=== PATIENT | female | born 1995 | race Caucasian/White ===

== ENCOUNTER 2019-05-20 23:55 | Emergency (ER) | payer SELFPAY ==
--- NOTE | 2019-05-21 00:48 | EDM.PDOC ---
ED HPI GENERAL MEDICAL PROBLEM - General Chief Complaint: Respiratory Problem Stated Complaint: SKIN AND NOSE BURING THROAT DRY VOMITING CHILLS Time Seen by Provider: 05/21/19 00:07 Source of Information: Reports: Patient History Limitations: Reports: No Limitations - History of Present Illness INITIAL COMMENTS - FREE TEXT/NARRATIVE: The patient presents for body aces, low back pain, fever and a cough. This has been going on for about a week. Today she developed the fever and low back pain. She has no chest pain. She does not feel short of breath. She has no dysuria or abdominal pain. She did not get the flu shot this year. She also has a sore throat. Onset: Gradual Duration: Week(s): (1) Location: Reports: Generalized Quality: Reports: Ache Severity: Moderate Improves with: Reports: None Worsens with: Reports: None Associated Symptoms: Reports: Cough, Fever/Chills. Denies: Chest Pain, Headaches, Nausea/Vomiting, Shortness of Breath Treatments SYSTEMS SECURITY CONSULTANT: Reports: Acetaminophen, Aspirin, Heat Therapy, NSAIDS Other Treatments SYSTEMS SECURITY CONSULTANT: warm bath Back Pain Score (Numeric/FACES): 7 - Related Data Allergies Allergy/AdvReac Type Severity Reaction Status Date / Time No Known Allergies Allergy Verified 05/21/19 00:15 Home Meds: Home Meds . [No Known Home Meds] 05/21/19 [History] Past Medical History - Past Health History Medical/Surgical History: Denies Medical/Surgical History Social & Family History - Tobacco Use Smoking Status *Q: Never Smoker Second Hand Smoke Exposure: No - Caffeine Use Caffeine Use: Reports: Coffee - Recreational Drug Use Recreational Drug Use: No ED ROS GENERAL - Review of Systems Review Of Systems: See Below Constitutional: Reports: Fever, Chills HEENT: Reports: No Symptoms Respiratory: Reports: Cough. Denies: Shortness of Breath Cardiovascular: Reports: No Symptoms Endocrine: Reports: No Symptoms GI/Abdominal: Reports: No Symptoms : Reports: No Symptoms Musculoskeletal: Reports: No Symptoms ED EXAM, GENERAL - Physical Exam Exam: See Below Exam Limited By: No Limitations General Appearance: Alert, No Apparent Distress Ears: Normal External Exam, Normal Canal, Normal TMs Nose: Normal Inspection Throat/Mouth: Normal Inspection Head: Atraumatic, Normocephalic Neck: Normal Inspection, Supple, Non-Tender Respiratory/Chest: No Respiratory Distress, Lungs Clear, Normal Breath Sounds Cardiovascular: Regular Rate, Rhythm, No Edema, No Murmur GI/Abdominal: Soft, Non-Tender, No Organomegaly, No Mass Back Exam: Normal Inspection Extremities: Normal Inspection Neurological: Alert, Oriented, No Motor/Sensory Deficits Course - Vital Signs Last Recorded V/S: Last Vital Signs Temp 99.6 F 05/21/19 00:08 Pulse 103 H 05/21/19 00:08 Resp 18 05/21/19 00:08 BP 142/89 H 05/21/19 00:08 Pulse Ox 98 05/21/19 00:08 - Orders/Labs/Meds Orders: Active Orders 24 hr Category Date Time Status CXR [Chest 2V] [CR] Stat Exams 05/21/19 00:22 Taken Isolation [COMM] Routine Oth 05/21/19 00:22 Ordered - Re-Assessments/Exams Free Text/Narrative Re-Assessment/Exam: 05/21/19 00:48 I have ordered a CXR and influenza. 05/21/19 01:18 Her influenza is negative. Her CXR shows no pneumonia. This appears a viral URI. I will discharge her home. Departure - Departure Time of Disposition: 01:25 Disposition: Home, Self-Care 01 Condition: Good Clinical Impression: Viral URI - Discharge Information *PRESCRIPTION DRUG MONITORING PROGRAM REVIEWED*: Not Applicable *COPY OF PRESCRIPTION DRUG MONITORING REPORT IN PATIENT LINA: Not Applicable Referrals: PCP,Not In Area [Primary Care Provider] - Teresa Sims REWORKER [Nurse Practitioner] - 1 Week Forms: ED Department Discharge Additional Instructions: Drink plenty of fluids. Take tylenol or motirn for fever or pain. You can try over the counter cold preparations. Please return if you are worse. Sepsis Event Note - Evaluation Sepsis Screening Result: No Definite Risk - Focused Exam Vital Signs: Vital Signs Temp Pulse Resp BP Pulse Ox 05/21/19 00:08 99.6 F 103 H 18 142/89 H 98 Date Exam was Performed: 05/21/19 Time Exam was Performed: 01:18 - My Orders Last 24 Hours: My Active Orders 05/21/19 00:22 CXR [Chest 2V] [CR] Stat Isolation [COMM] Routine - Assessment/Plan Last 24 Hours: My Active Orders 05/21/19 00:22 CXR [Chest 2V] [CR] Stat Isolation [COMM] Routine
--- NOTE | 2019-05-21 07:36 | CR ---
Chest: Two views of the chest were obtained. Comparison: No prior chest x-ray. Heart size and mediastinum are normal. Lungs are clear with no acute parenchymal change. Bony structures appear unremarkable. Impression: 1. Nothing acute is seen on two-view chest x-ray. Diagnostic code #1 This report was dictated in MDT
== END 2019-05-21 01:36 | disposition home or self-care (01) ==
LOC: JD.ED 23:55
DX: J06.9 Acute upper respiratory infection, unspecified (principal)
CPT/HCPCS: 71046; 71046-26; 87804; 99282; 99283-25

== ENCOUNTER 2019-06-06 12:40 | Emergency (ER) | payer OTHER ==
--- NOTE | 2019-06-06 13:41 | EDM.PDOC ---
ED HPI GENERAL MEDICAL PROBLEM - General Chief Complaint: Respiratory Problem Stated Complaint: COVID-19 TESTNG (SOB/FEVER/CHILLS) Time Seen by Provider: 06/06/19 13:03 Source of Information: Reports: Patient, RN Notes Reviewed History Limitations: Reports: No Limitations - History of Present Illness INITIAL COMMENTS - FREE TEXT/NARRATIVE: Patient is a 23-year-old female who presents to the ED for ongoing upper respiratory symptoms. Patient notes that she developed an illness 3 weeks ago, and she is still having a fever, severe body aches/fever/chills, and extreme fatigue, she states that when she gets home all she does not sleep all day, and headaches. Patient states that she moved here recently from [place] in March. She has been taking ibuprofen and BC powder for fever/pain relief. The patient notes that she did have Asthma as a younger person, but she grew out of it. The patient works at [employer] and has been around multiple sick people, and cannot recall if any one has been coughing or sneezing. The patient denies any chance of . Headache Pain Score (Numeric/FACES): 8 - Related Data Allergies Allergy/AdvReac Type Severity Reaction Status Date / Time No Known Allergies Allergy Verified 05/21/19 00:15 Home Meds: Home Meds . [No Known Home Meds] 05/21/19 [History] Past Medical History - Past Health History Medical/Surgical History: Denies Medical/Surgical History Social & Family History - Family History Family Medical History: Noncontributory - Tobacco Use Smoking Status *Q: Never Smoker Second Hand Smoke Exposure: No - Caffeine Use Caffeine Use: Reports: Coffee ED ROS GENERAL - Review of Systems Review Of Systems: Comprehensive ROS is negative, except as noted in HPI. ED EXAM, GENERAL - Physical Exam Exam: See Below Exam Limited By: No Limitations General Appearance: Alert, WD/WN, No Apparent Distress Ears: Normal External Exam Nose: Normal Inspection Throat/Mouth: Normal Inspection Head: Atraumatic Neck: Normal Inspection Respiratory/Chest: No Respiratory Distress, Lungs Clear, Normal Breath Sounds, No Accessory Muscle Use, Chest Non-Tender Cardiovascular: Normal Peripheral Pulses, Regular Rate, Rhythm, No Murmur GI/Abdominal: Normal Bowel Sounds, Soft, Non-Tender, No Distention, No Mass Extremities: Normal Inspection, Normal Capillary Refill Neurological: Alert, Oriented, Normal Cognition, No Motor/Sensory Deficits Psychiatric: Normal Affect, Normal Mood Skin Exam: Warm, Dry, Intact, Normal Color, No Rash Course - Vital Signs Last Recorded V/S: Last Vital Signs Temp 99.1 F 06/06/19 12:58 Pulse 99 06/06/19 12:58 Resp 16 06/06/19 12:58 BP 132/79 06/06/19 12:58 Pulse Ox 98 06/06/19 12:58 - Orders/Labs/Meds Orders: Active Orders 24 hr Category Date Time Status CORONAVIRUS COVID-19 PCR PHL [MREF] Stat Lab 06/06/19 14:40 Received - Re-Assessments/Exams Free Text/Narrative Re-Assessment/Exam: 06/06/19 13:55 Patient presents to the ED for ongoing respiratory symptoms. We will do a chest x-ray today, and do a coronavirus test. Patient seems to be okay with this plan at this time. 06/06/19 14:26 The patient's chest x-ray has come back and is within normal limits. Patient will be discharged home. Departure - Departure Time of Disposition: 13:56 Disposition: Home, Self-Care 01 Condition: Good Clinical Impression: Suspected 2019 novel coronavirus infection - Discharge Information *PRESCRIPTION DRUG MONITORING PROGRAM REVIEWED*: No *COPY OF PRESCRIPTION DRUG MONITORING REPORT IN PATIENT LINA: No Referrals: PCP,None [Primary Care Provider] - Forms: ED Department Discharge, ED Return to Work/School Form Additional Instructions: You were seen in the ER today for ongoing and/or worsening respiratory symptoms. Your chest x-ray showed no signs of pneumonia at this time. Your oxygen levels were great at 99% on room air. At this time we did test you for coronavirus. Regarding testing for COVID-19, testing supplies are very limited, and the tests must be rationed in a way that only the patients that are HIGHLY suspected to have the virus are the ones being tested at this time. You have been given a handout from the [place] Dept[facility] of Health regarding this. We ask that you self-quarantine for at least 7 days from the beginning of symptoms. You have been given a work note to reflect this. Swabs are sent from this facility on a daily basis, at 2:30 PM, you should expect up to 3-5 business days for positive or negative results. However you may receive results earlier than this. We are doing our best to call as soon as we get results from the [place] dept[facility] of Health. It is recommended at this time that you go home and self quarantine and try to limit exposure to other as much as possible. Please try to increase your oral fluid intake, and eat multiple small meals throughout the day, to keep yourself healthy. You may take 500 mg Tylenol every hours 6 hours for pain/fever relief. Do not exceed 4000 mg Tylenol in a 24-hour time span. However, running a fever is your body's natural response to illness, it allows the body to develop antibodies to disease, we are recommending trying to limit the use of Tylenol as much as possible to allow your body's natural immune response. Sepsis Event Note - Evaluation Sepsis Screening Result: No Definite Risk - Focused Exam Vital Signs: Vital Signs Temp Pulse Resp BP Pulse Ox 06/06/19 12:58 99.1 F 99 16 132/79 98 Date Exam was Performed: 06/06/19 Time Exam was Performed: 17:05 - My Orders Last 24 Hours: My Active Orders 06/06/19 14:40 CORONAVIRUS COVID-19 PCR PHL [MREF] Stat - Assessment/Plan Last 24 Hours: My Active Orders 06/06/19 14:40 CORONAVIRUS COVID-19 PCR PHL [MREF] Stat
--- NOTE | 2019-06-06 14:24 | CR ---
Chest: PA and lateral views of the chest were obtained. Comparison: Prior chest x-ray of 05/21/19. Heart size and mediastinum are normal. Lungs show no acute parenchymal change. Bony structures are unremarkable. Impression: 1. Nothing acute is suspected on 2 view chest x-ray. Diagnostic code #1 This report was dictated in MDT
== END 2019-06-06 15:00 | disposition home or self-care (01) ==
LOC: JD.ED 12:40
DX: Z20.828 Contact with and (suspected) exposure to other viral communicable diseases (principal); R50.9 Fever, unspecified
CPT/HCPCS: 71046; 71046-26; 99282; 99283-25; U0002

== ENCOUNTER 2019-10-03 22:39 | Emergency (ER) | payer MEDICARE, OTHER ==
--- NOTE | 2019-10-03 23:30 | EDM.PDOC ---
ED HPI GENERAL MEDICAL PROBLEM - General Chief Complaint: Respiratory Problem Stated Complaint: SOB Time Seen by Provider: 10/03/19 23:30 - History of Present Illness INITIAL COMMENTS - FREE TEXT/NARRATIVE: 24-year-old female presents the emergency room with shortness of breath. The patient had a history of asthma when she was much younger but she outgrew it. She recently moved to this area. She notices that warm environments and strenuous activity really make her short of breath and she becomes very wheezy. She starts to cough during these times as well. She notices that began in the walk-in freezer tends to help her breathing. Her cough is generally nonproductive she is not had any fevers or chills. Patient denies any other complaints at this time she is not had any chest pain associated with this. She does not believe she is . She has a history of irregular periods and is trying to get her periods cycled and has been on Provera for this by history. Upper Chest Pain Score (Numeric/FACES): 2 - Related Data Allergies Allergy/AdvReac Type Severity Reaction Status Date / Time No Known Allergies Allergy Verified 10/03/19 23:16 Home Meds: Home Meds Albuterol Sulfate [Albuterol Sulfate Hfa] 8.5 gm IH ASDIRECTED #1 [email or web address] 10/04/19 [Rx] Past Medical History - Past Health History Medical/Surgical History: Denies Medical/Surgical History Social & Family History - Family History Family Medical History: Noncontributory - Caffeine Use Caffeine Use: Reports: Coffee ED ROS GENERAL - Review of Systems Review Of Systems: See Below Constitutional: Reports: No Symptoms HEENT: Reports: No Symptoms Respiratory: Reports: Shortness of Breath, Wheezing, Cough. Denies: Pleuritic Chest Pain, Sputum, Hemoptysis Cardiovascular: Reports: No Symptoms GI/Abdominal: Reports: No Symptoms : Reports: No Symptoms Skin: Reports: No Symptoms Neurological: Reports: No Symptoms ED EXAM, GENERAL - Physical Exam Exam: See Below Exam Limited By: No Limitations General Appearance: Alert, No Apparent Distress Ears: Normal External Exam, Normal Canal, Hearing Grossly Normal, Normal TMs Nose: Normal Inspection, Normal Mucosa, No Blood Throat/Mouth: Normal Inspection, Normal Lips, Normal Teeth, Normal Gums, Normal Oropharynx, Normal Voice, No Airway Compromise Head: Atraumatic, Normocephalic Neck: Normal Inspection, Supple, Non-Tender, Full Range of Motion. No: Lymphadenopathy (L), Lymphadenopathy (R) Respiratory/Chest: No Respiratory Distress, Normal Breath Sounds, Other (No end expiratory wheezes noted few coarse breath sounds noted otherwise moving air fairly well no respiratory distress). No: Respiratory Distress Cardiovascular: Regular Rate, Rhythm, No Edema, No Murmur GI/Abdominal: Normal Bowel Sounds, Soft, Non-Tender Course - Vital Signs Last Recorded V/S: Last Vital Signs Temp 37.0 C 10/04/19 01:04 Pulse 96 10/04/19 01:04 Resp 18 10/04/19 01:04 BP 122/63 10/04/19 01:04 Pulse Ox 100 10/04/19 01:04 - Orders/Labs/Meds Orders: Active Orders 24 hr Category Date Time Status RT Post Treatment Assessment [RC] Click to Edit Care 10/03/19 23:57 Active RT Pre-Treatment Assessment [RC] Click to Edit Care 10/03/19 23:57 Active Chest 2V [CR] Stat Exams 10/03/19 23:56 Taken Meds: Medications Discontinued Medications Generic Name Dose Route Start Last Admin Trade Name Marvel PRN Reason Stop Dose Admin Albuterol 0 gm 10/03/19 23:56 10/04/19 00:25 Proventil Hfa INH 10/03/19 23:57 2 puff ONETIME ONE Administration - Re-Assessments/Exams Free Text/Narrative Re-Assessment/Exam: 10/04/19 00:11 I will check a chest x-ray and start an albuterol inhaler see if this helps her out. 10/04/19 01:41 Chest x-ray is negative for acute cardiopulmonary changes there might be some mild hyperinflation noted. The patient was started on albuterol MDI and she is now symptom-free this helped out completely. She is ready to go home and would like to go home. I will give her a prescription for an albuterol MDI but more importantly she is instructed to establish with a regular provider and discuss how things are going and if she should be restarted on her Advair. Departure - Departure Time of Disposition: 01:43 Disposition: Home, Self-Care 01 Clinical Impression: Asthma - Discharge Information Referrals: PCP,None [Primary Care Provider] - Forms: ED Department Discharge Additional Instructions: Return to the emergency room with any questions problems or worsening symptoms. Follow-up with a local healthcare provider and be seen this next week. The phone number to the hospital clinic is [phone]. Use the albuterol 2 puffs every 4 hours as needed. However if this is needed on a regular basis you need to be back on your Advair. I did give you a refill for the albuterol at [facility]. Sepsis Event Note (ED) - Evaluation Sepsis Screening Result: No Definite Risk - Focused Exam Vital Signs: Vital Signs Temp Pulse Resp BP Pulse Ox 10/04/19 01:04 37.0 C 96 18 122/63 100 10/03/19 23:10 36.2 C 18 98 - My Orders Last 24 Hours: My Active Orders 10/03/19 23:56 Chest 2V [CR] Stat 10/03/19 23:57 RT Post Treatment Assessment [RC] Click to Edit RT Pre-Treatment Assessment [RC] Click to Edit - Assessment/Plan Last 24 Hours: My Active Orders 10/03/19 23:56 Chest 2V [CR] Stat 10/03/19 23:57 RT Post Treatment Assessment [RC] Click to Edit RT Pre-Treatment Assessment [RC] Click to Edit
[2019-10-03] MEDS ORDERED: Albuterol 6.7 GM Inhaler INH ONE (23:56)
--- NOTE | 2019-10-04 10:51 | CR ---
Chest: PA and lateral views of the chest were obtained. Comparison: Previous chest x-ray of 06/06/19. Heart size and mediastinum are normal. Lungs are clear with no acute parenchymal change. Bony structures are unremarkable. Impression: 1. Nothing acute is seen on 2 view chest x-ray. Diagnostic code #1 This report was dictated in MDT
== END 2019-10-04 01:59 | disposition home or self-care (01) ==
LOC: JD.ED 22:39
DX: J45.909 Unspecified asthma, uncomplicated (principal)
CPT/HCPCS: 71046; 94640; 99283; A9270

== ENCOUNTER 2019-11-06 00:23 | Emergency (ER) | payer MEDICAID, MEDICARE, OTHER ==
[2019-11-06] MEDS ORDERED: Ondansetron 4 MG/2 ML SDV IVPUSH ONE (01:08)
[2019-11-06] MEDS ORDERED: Sodium Chloride 0.9% 1,000 ML IV SCH (01:15)
--- NOTE | 2019-11-06 03:31 | EDM.PDOC ---
ED HPI GENERAL MEDICAL PROBLEM - General Chief Complaint: Gastrointestinal Problem Stated Complaint: 10 WKS PG BACK PAIN DEHYDRATED Time Seen by Provider: 11/06/19 01:39 Source of Information: Reports: Patient History Limitations: Reports: No Limitations - History of Present Illness INITIAL COMMENTS - FREE TEXT/NARRATIVE: This is a 24-year-old female. She is approximately 10 weeks by her last menstrual period of August [id number]. She says that she has had morning sickness for the last 3 weeks. She has had nausea and vomiting multiple times with difficulty in keeping any food down though she has been able to keep some fluids. She has no medicine at home for her nausea. To see Dr. Gonzalez next week. She is a 1 para 0 aborta 0. [place] any fever or chills no cough no congestion no difficulty in urination. - Related Data Allergies Allergy/AdvReac Type Severity Reaction Status Date / Time No Known Allergies Allergy Verified 11/06/19 00:48 Home Meds: Home Meds . [No Known Home Meds] 11/06/19 [History] Past Medical History - Past Health History Medical/Surgical History: Denies Medical/Surgical History Social & Family History - Family History Family Medical History: Noncontributory - Tobacco Use Smoking Status *Q: Never Smoker - Caffeine Use Caffeine Use: Reports: Coffee ED ROS GENERAL - Review of Systems Review Of Systems: See Below Constitutional: Denies: Fever, Chills HEENT: Reports: No Symptoms Respiratory: Reports: No Symptoms Cardiovascular: Reports: No Symptoms Endocrine: Reports: No Symptoms GI/Abdominal: Reports: Abdominal Pain, Nausea, Vomiting. Denies: Diarrhea : Denies: Dysuria Musculoskeletal: Reports: No Symptoms Skin: Reports: No Symptoms Neurological: Reports: No Symptoms Psychiatric: Reports: No Symptoms Hematologic/Lymphatic: Reports: No Symptoms ED EXAM, GI/ABD - Physical Exam Exam: See Below Exam Limited By: No Limitations General Appearance: Alert, WD/WN, No Apparent Distress Eyes: Bilateral: Normal Appearance Ears: Normal External Exam Throat/Mouth: Normal Voice Head: Normocephalic Neck: Supple Respiratory/Chest: No Respiratory Distress, Lungs Clear, Normal Breath Sounds Cardiovascular: Regular Rate, Rhythm, No Murmur GI/Abdominal Exam: Soft, Other (Does have the soreness in the lower abdomen but no guarding no rebound noted no upper abdominal tenderness) Back Exam: Normal Inspection, Full Range of Motion Extremities: Normal Inspection, Normal Range of Motion Neurological: Alert, Oriented Psychiatric: Normal Affect, Normal Mood Skin Exam: Warm, Dry Course - Vital Signs Last Recorded V/S: Last Vital Signs Temp 98.9 F 11/06/19 00:46 Pulse 79 11/06/19 00:46 Resp 16 11/06/19 00:46 BP 120/89 11/06/19 00:46 Pulse Ox 100 11/06/19 00:46 - Orders/Labs/Meds Orders: Active Orders 24 hr Category Date Time Status Sodium Chloride 0.9% [Normal Saline] 1,000 ml Med 11/06/19 01:15 Active IV ASDIRECTED Medication Orders Sodium Chloride (Normal Saline) 1,000 mls @ 999 mls/hr IV ASDIRECTED TIFF Last Admin: 11/06/19 01:25 Dose: 999 mls/hr Documented by: GONZALO Labs: Laboratory Tests 11/06/19 11/06/19 11/06/19 Range/Units 01:15 01:15 01:15 WBC 16.45 H (3.98-10.04) K/mm3 RBC 4.44 (3.98-5.22) M/mm3 Hgb 13.8 (11.2-15.7) gm/dl Hct 39.6 (34.1-44.9) % MCV 89.2 (79.4-94.8) fl MCH 31.1 (25.6-32.2) pg MCHC 34.8 (32.2-35.5) g/dl RDW Std Deviation 38.5 (36.4-46.3) fL Plt Count 337 (182-369) K/mm3 MPV 9.3 L (9.4-12.3) fl Neut % (Auto) 68.9 (34.0-71.1) % Lymph % (Auto) 19.5 (19.3-51.7) % Randolph % (Auto) 7.7 (4.7-12.5) % Eos % (Auto) 3.5 (0.7-5.8) Baso % (Auto) 0.2 (0.1-1.2) % Neut # (Auto) 11.32 H (1.56-6.13) K/mm3 Lymph # (Auto) 3.20 (1.18-3.74) K/mm3 Randolph # (Auto) 1.27 H (0.24-0.36) K/mm3 Eos # (Auto) 0.58 H (0.04-0.36) K/mm3 Baso # (Auto) 0.04 (0.01-0.08) K/mm3 Manual Slide Review Normal smear Sodium 135 L (136-145) mEq/L Potassium 3.2 L (3.5-5.1) mEq/L Chloride 102 (98-107) mEq/L Carbon Dioxide 24 (21-32) mEq/L Anion Gap 12.2 (5-15) BUN 9 (7-18) mg/dL Creatinine 0.7 (0.55-1.02) mg/dL Est Cr Clr Drug Dosing TNP Estimated GFR (MDRD) > 60 (>60) mL/min BUN/Creatinine Ratio 12.9 L (14-18) Glucose 98 (74-106) mg/dL Calcium 9.0 (8.5-10.1) mg/dL Total Bilirubin 0.1 L (0.2-1.0) mg/dL AST 11 L (15-37) U/L ALT 21 (14-59) U/L Alkaline Phosphatase 82 (46-116) U/L Total Protein 7.3 (6.4-8.2) g/dl Albumin 3.6 (3.4-5.0) g/dl Globulin 3.7 gm/dL Albumin/Globulin Ratio 1.0 (1-2) HCG, Quant 094000.0 mIU/mL Meds: Medications Generic Name Dose Route Start Last Admin Trade Name Freq PRN Reason Stop Dose Admin Sodium Chloride 1,000 mls @ 999 mls/hr 11/06/19 01:15 11/06/19 01:25 Normal Saline IV 999 mls/hr ASDIRECTED TIFF Administration Discontinued Medications Generic Name Dose Route Start Last Admin Trade Name Freq PRN Reason Stop Dose Admin Ondansetron HCl 4 mg 11/06/19 01:08 11/06/19 01:25 Zofran IVPUSH 11/06/19 01:09 4 mg ONETIME ONE Administration - Re-Assessments/Exams Free Text/Narrative Re-Assessment/Exam: 11/06/19 03:32 The CBC shows a white count of 16,000 but a normal differential. Her CMP appears to be mostly normal but has a potassium of 3.2 and sodium of 135. She is not having any active vomiting here in the ER. 11/06/19 04:25 The patient has been doing well since she is gotten here and taken the fluids well. She has had no further nausea or vomiting in the ER. Her white count is slightly elevated at 16,000 and her sodium is 135 potassium 3.2 all of what she would expect from persistent vomiting. She feels actually pretty good now. I am to put her on some Zofran and should get it out of the [employer] machine before she goes home. Also put her out of work through Friday since she is going to see Dr. Gonzalez on Friday. Departure - Departure Time of Disposition: 04:26 Disposition: Home, Self-Care 01 Condition: Good Clinical Impression: First trimester , Hyperemesis gravidarum - Discharge Information *PRESCRIPTION DRUG MONITORING PROGRAM REVIEWED*: Not Applicable *COPY OF PRESCRIPTION DRUG MONITORING REPORT IN PATIENT LINA: Not Applicable Instructions: First Trimester of , [id number], Nausea and Vomiting, Adult, [id number], Dehydration, Adult, [id number] Referrals: Cedrick Gonzalez MD [Primary Care Provider] - Forms: ED Department Discharge, ED Return to Work/School Form Additional Instructions: Get the Zofran from the [employer] machine in the lobby of the ER before you go home. Use the Zofran every 6 hours as needed for nausea. Continue to drink fluids with small sips very frequently. Rest and sleep as much as possible. Follow-up with Dr. Gonzalez on Friday as scheduled. Sepsis Event Note (ED) - Evaluation Sepsis Screening Result: No Definite Risk - Focused Exam Vital Signs: Vital Signs Temp Pulse Resp BP Pulse Ox 11/06/19 00:46 98.9 F 79 16 120/89 100 - My Orders Last 24 Hours: My Active Orders 11/06/19 01:15 Sodium Chloride 0.9% [Normal Saline] 1,000 ml IV ASDIRECTED - Assessment/Plan Last 24 Hours: My Active Orders 11/06/19 01:15 Sodium Chloride 0.9% [Normal Saline] 1,000 ml IV ASDIRECTED
== END 2019-11-06 04:41 | disposition home or self-care (01) ==
LOC: JD.ED 00:23
DX: O21.0 Mild hyperemesis gravidarum (principal); Z3A.10 10 weeks gestation of pregnancy
CPT/HCPCS: 36415; 80053; 84702; 85025; 96361; 96374; 99284; J2405; J7030; 99283

== ENCOUNTER 2020-03-24 09:41 | Emergency (ER) | payer MEDICAID ==
[2020-03-24] MEDS ORDERED: FLU VACC QS2020-21(6MOS UP)/PF 60 MCG/0.5 ML SYRINGE IM ONE (10:00)
[2020-03-24] MEDS ORDERED: Pantoprazole 40 MG in Sodium Chloride 0.9% 100 ML IV ONE (10:08)
[2020-03-24] MEDS ORDERED: Sodium Chloride 0.9% 10 ML Syringe FLUSH PRN (10:08)
[2020-03-24] MEDS ORDERED: Sodium Chloride 0.9% 1,000 ML IV ONE (10:08)
[2020-03-24] MEDS ORDERED: Pantoprazole 40 MG Vial IVPUSH ONE (10:20)
--- NOTE | 2020-03-24 10:54 | EDM.PDOC ---
ED HPI GENERAL MEDICAL PROBLEM - General Chief Complaint: Gastrointestinal Problem Stated Complaint: VOMITING BLOOD/29 WKS PG Time Seen by Provider: 03/24/20 09:53 Source of Information: Reports: Patient History Limitations: Reports: No Limitations, Other (Vitals in the emergency department reveal a temp of 96.6, pulse 99, respiratory rate 16, blood pressure 129/79, pulse ox 98% on room air) - History of Present Illness INITIAL COMMENTS - FREE TEXT/NARRATIVE: 24-year-old female presents to the emergency department with complaints of hematemesis. She states over the period of the last 3 days she is vomiting twice in the morning and once in the evening despite taking Zofran. And she states over the course of the last 3 days when she vomits the volume about "a cupful "there is blood clots noted within the emesis about the size of a pencil eraser. She states she notices about 2 or 3 of these clots. She also states that this morning when she had about 1 bowel movement it was black. Of note she does take a vitamin with iron. She also states that she was prescribed Zofran for the hyperemesis however was told that she could take it with food and she feels like it is causing her to have nausea. Denies any chest pain, shortness of breath, or palpitations associated with this and she denies any syncope or near syncopal episodes. She states that she is able to eat food but when she drinks water is when she notices she gets more nauseated and vomits. Her OB provider is Dr. Gonzalez, and she states that she has not mentioned any of the symptoms to him. 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 Denies: Weakness HEENT: Reports: Throat Pain (due to vomiting and reflux) Respiratory: Reports: No Symptoms Cardiovascular: Reports: No Symptoms Endocrine: Reports: No Symptoms GI/Abdominal: Reports: Black Stool, Hematemesis, Nausea, Vomiting. Denies: Bloody Stool, Constipation, Diarrhea : Reports: No Symptoms Musculoskeletal: Reports: No Symptoms Skin: Reports: No Symptoms Neurological: Reports: No Symptoms Psychiatric: Reports: No Symptoms Hematologic/Lymphatic: Reports: No Symptoms Immunologic: Reports: No Symptoms ED EXAM, GI/ABD - Physical Exam Exam: See Below Exam Limited By: No Limitations General Appearance: Alert, WD/WN, No Apparent Distress Ears: Normal External Exam, Hearing Grossly Normal Nose: Normal Inspection Throat/Mouth: Normal Inspection, Normal Voice, No Airway Compromise Neck: Normal Inspection, Supple, Non-Tender, Full Range of Motion Respiratory/Chest: No Respiratory Distress, Lungs Clear, Normal Breath Sounds, No Accessory Muscle Use, Chest Non-Tender Cardiovascular: Normal Peripheral Pulses, Regular Rate, Rhythm, No Edema, No Murmur GI/Abdominal Exam: Normal Bowel Sounds, Non-Tender, Other (pt is ) (Female) Exam: Deferred Rectal (Female) Exam: Deferred Back Exam: Normal Inspection, Full Range of Motion Extremities: Normal Inspection, Normal Range of Motion, Non-Tender, No Pedal Edema, Normal Capillary Refill Neurological: Alert, Oriented, Normal Cognition Psychiatric: Normal Affect, Normal Mood Skin Exam: Warm, Dry, Intact, Normal Color, No Rash Lymphatic: No Adenopathy Course - Vital Signs Text/Narrative:: 24-year-old female presents to the ER with complaints of hematemesis. She states that over the course of the last 3 days she has vomited twice in the morning and once in the evening and all the episodes she noted specks of blood the size of a pencil eraser within her emesis. She states that this morning she also noted that her stool was black in color. She does take a vitamin with iron. She also has been prescribed Zofran however she was told that she could take it with food. She was not educated on the need to take the Zofran and wait a half an hour to 45 minutes prior to eating. Patient states that she is not able to keep much water down but she is able to eat. Nursing staff did perform orthostatic vital signs on her and she is orthostatic. I have ordered a 1 L normal saline bolus, Protonix 40 mg IV, CBC, CMP, magnesium. heart tones were assessed by nursing staff at a rate of 150 bpm. Last Recorded V/S: Last Vital Signs Temp 96.6 F L 03/24/20 09:47 Pulse 99 03/24/20 09:47 Resp 16 03/24/20 09:47 BP 129/79 03/24/20 09:47 Pulse Ox 98 03/24/20 09:47 Orthostatic Blood Pressure [ 133/82 Standing] Orthostatic Blood Pressure [ 123/86 Sitting] Orthostatic Blood Pressure [ 129/79 Supine] - Orders/Labs/Meds Orders: Active Orders 24 hr Category Date Time Status Influenza Vaccine Charge [RC] .DISCHARGE Care 03/24/20 09:55 Active Sodium Chloride 0.9% [Saline Flush] Med 03/24/20 10:08 Active 10 ml FLUSH ASDIRECTED PRN Saline Lock Insert [OM.PC] Stat Oth 03/24/20 10:08 Ordered Medication Orders Sodium Chloride (Saline Flush) 10 ml FLUSH ASDIRECTED PRN PRN Reason: Keep Vein Open Labs: Laboratory Tests 03/24/20 03/24/20 Range/Units 10:00 10:00 WBC 12.15 H (3.98-10.04) K/mm3 RBC 4.25 (3.98-5.22) M/mm3 Hgb 13.0 (11.2-15.7) gm/dl Hct 38.8 (34.1-44.9) % MCV 91.3 (79.4-94.8) fl MCH 30.6 (25.6-32.2) pg MCHC 33.5 (32.2-35.5) g/dl RDW Std Deviation 42.1 (36.4-46.3) fL Plt Count 303 (182-369) K/mm3 MPV 9.7 (9.4-12.3) fl Neut % (Auto) 70.2 (34.0-71.1) % Lymph % (Auto) 20.2 (19.3-51.7) % [place] % (Auto) 5.4 (4.7-12.5) % Eos % (Auto) 3.5 (0.7-5.8) Baso % (Auto) 0.2 (0.1-1.2) % Neut # (Auto) 8.52 H (1.56-6.13) K/mm3 Lymph # (Auto) 2.46 (1.18-3.74) K/mm3 [place] # (Auto) 0.66 H (0.24-0.36) K/mm3 Eos # (Auto) 0.43 H (0.04-0.36) K/mm3 Baso # (Auto) 0.02 (0.01-0.08) K/mm3 Sodium 139 (136-145) mEq/L Potassium 3.8 (3.5-5.1) mEq/L Chloride 104 (98-107) mEq/L Carbon Dioxide 20 L (21-32) mEq/L Anion Gap 18.8 H (5-15) BUN 7 (7-18) mg/dL Creatinine 0.6 (0.55-1.02) mg/dL Est Cr Clr Drug Dosing 105.64 mL/min Estimated GFR (MDRD) > 60 (>60) mL/min BUN/Creatinine Ratio 11.7 L (14-18) Glucose 87 (74-106) mg/dL Calcium 8.8 (8.5-10.1) mg/dL Magnesium 1.8 (1.8-2.4) mg/dl Total Bilirubin 0.2 (0.2-1.0) mg/dL AST 14 L (15-37) U/L ALT 17 (14-59) U/L Alkaline Phosphatase 109 (46-116) U/L Total Protein 6.9 (6.4-8.2) g/dl Albumin 2.8 L (3.4-5.0) g/dl Globulin 4.1 gm/dL Albumin/Globulin Ratio 0.7 L (1-2) Meds: Medications Generic Name Dose Route Start Last Admin Trade Name Freq PRN Reason Stop Dose Admin Sodium Chloride 10 ml 03/24/20 10:08 Saline Flush FLUSH ASDIRECTED PRN Keep Vein Open Discontinued Medications Generic Name Dose Route Start Last Admin Trade Name Freq PRN Reason Stop Dose Admin Pantoprazole Sodium 40 mg/ 100 mls @ 200 mls/hr 03/24/20 10:08 03/24/20 10:22 Sodium Chloride IV 03/24/20 10:37 Not Given ONETIME ONE Sodium Chloride 1,000 mls @ 999 mls/hr 03/24/20 10:08 03/24/20 10:22 Normal Saline IV 03/24/20 11:08 999 mls/hr ONETIME ONE Administration Influenza Virus Vaccine 60 mcg 03/24/20 10:00 03/24/20 10:07 Fluzone Quad Syringe IM 03/24/20 10:01 Not Given .ONCE ONE Pantoprazole Sodium 40 mg 03/24/20 10:20 03/24/20 10:25 Protonix Iv IVPUSH 03/24/20 10:21 40 mg ONETIME ONE Administration - Re-Assessments/Exams Free Text/Narrative Re-Assessment/Exam: 03/24/20 11:24 Labs reveal WBC 12.15, hemoglobin 13.0, hematocrit 38.8. Sodium 139, potassium 3.8, carbon dioxide 20, anion gap 18.8, Patient will be discharged to home once her IV fluids have infused. Recommend that she start taking Prilosec 20mg daily. Also recommend that she continue to use her Zofran ODT as needed for nausea however that once she takes it she waits half an hour to 45 minutes before attempting to eat or drink. She will need follow-up with Dr. Gonzalez in the clinic within the next week. Patient is understanding of this and agrees. Departure - Departure Time of Disposition: 11:41 Disposition: Home, Self-Care 01 Condition: Good Clinical Impression: Gastroesophageal reflux Qualifiers: Esophagitis presence: esophagitis presence not specified Qualified Code(s): K21.9 - Gastro-esophageal reflux disease without esophagitis - Discharge Information Instructions: Gastroesophageal Reflux Disease, Adult, [id number] Referrals: Cedrick Gonzalez MD [Primary Care Provider] - Forms: ED Department Discharge Additional Instructions: You were seen in the emergency department with complaints of bloody vomit. Your lab work is unremarkable and does not show that you have had a significant amount of bleeding. You were given Protonix and your IV to decrease the acid in your stomach and esophagus. You were also given 1 L of IV fluids as you were dehydrated. Recommend that you start taking Prilosec 20 mg daily. This should reduce the acid in your stomach and have not decreased effect on your nausea and vomiting. Also recommend that you continue using your Zofran as previously prescribed however when you take it wait 30 to 45 minutes prior to attempting to eat or drink anything. Continue taking your vitamin daily. If this contains iron, it is likely your stools will be dark due to the iron. Follow-up with Dr. Gonzalez within the next week. Should your condition worsen or change please return to the emergency department Sepsis Event Note (ED) - Evaluation Sepsis Screening Result: No Definite Risk - Focused Exam Vital Signs: Vital Signs Temp Pulse Resp BP Pulse Ox 03/24/20 09:47 96.6 F L 99 16 129/79 98 - My Orders Last 24 Hours: My Active Orders 03/24/20 09:55 Influenza Vaccine Charge [RC] .DISCHARGE 03/24/20 10:08 Sodium Chloride 0.9% [Saline Flush] 10 ml FLUSH ASDIRECTED PRN Saline Lock Insert [OM.PC] Stat - Assessment/Plan Last 24 Hours: My Active Orders 03/24/20 09:55 Influenza Vaccine Charge [RC] .DISCHARGE 03/24/20 10:08 Sodium Chloride 0.9% [Saline Flush] 10 ml FLUSH ASDIRECTED PRN Saline Lock Insert [OM.PC] Stat
== END 2020-03-24 12:37 | disposition home or self-care (01) ==
LOC: JD.ED 09:41
DX: K21.9 Gastro-esophageal reflux disease without esophagitis (principal)
CPT/HCPCS: 36415; 80053; 83735; 85025; 96374; 99284; C9113; J7030; 99283

== ENCOUNTER 2020-05-15 09:15 | Inpatient (IN) | payer MEDICAID ==
[2020-05-15] MEDS ORDERED: Nalbuphine 10 MG/1 ML Vial IVPUSH PRN (10:05)
[2020-05-15] MEDS ORDERED: Sodium Chloride 0.9% 10 ML Syringe FLUSH PRN (10:05)
[2020-05-15] MEDS ORDERED: Oxytocin/Lactated Ringers 20 UNIT/1,000 ML BAG IV SCH ×2 (10:15→16:30)
[2020-05-15] MEDS ORDERED: Ampicillin 2 GM in Sodium Chloride 0.9% 100 ML IV ONE (10:30)
[2020-05-15] MEDS: Lactated Ringers 1,000 ML IV SCH ×3 (10:50→22:04)
[2020-05-15] MEDS: Oxytocin/Lactated Ringers 10 UNIT/1,000 ML BAG IV SCH ×2 (10:53→20:45)
[2020-05-15] MEDS ORDERED: Diphtheria,Pertussis(Acell),Tetanus Vaccine 0.5 ML Syringe IM ONE (11:52)
--- NOTE | 2020-05-15 13:05 | PCM.LDHP ---
<Yuan Antonio - Last Filed: 05/15/20 13:36> L&D History of Present Illness - General Date of Service: 05/15/20 Admit Problem/Dx: Patient Status Order with Admit Dx/Problem 05/15/20 09:33 Patient Status [ADT] Routine 05/15/20 10:05 Patient Status [ADT] Routine Admission Diagnosis/Problem Admission Diagnosis/Problem Source of Information: Patient History Limitations: Reports: No Limitations - History of Present Illness Introduction:: Patient is a 24 year old GBS + O+ female at 37-0 weeks gestational age with a past medical history of asthma and depression who presented this morning for SROM at approximately 7 am this morning. She reports that she is having some rib pain and occasional tightness but otherwise is comfortable. Current has been unremarkable. DANIELLE of 06/05/20 as confirmed by first trimester US. First trimester labs demonstrated hemoglobin of 14.2, platelets of 344,000. Type and screen demonstrated O+ with negative antibody screen. Hepatitis B screening, syphillis, HIV was negative, rubella immune. Negative gonorrhea/chlamydia. One hour GTT 86. RPR negative on 11/10/19 and 02/28/20. Anatomy US done 01/28/20 demonstrated normal anatomy with an EFW of 400 g. Patient did continue to struggle with nausea and heartburn during her and routinely took Zofran as well as omeprazole. She did take Wellbutrin for depression but reports that she takes half of her prescribed dose due to concerns about her stomach. The patient plans to pump but does not plan to breastfeed. 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: Psychiatric History: Reports: Anxiety Social & Family History - Family History Family Medical History: No Pertinent Family History - Tobacco Use Tobacco Use Status *Q: Never Tobacco User Second Hand Smoke Exposure: No - Caffeine Use Caffeine Use: Reports: Soda, Tea - Recreational Drug Use Recreational Drug Use: No H&P Review of Systems - Review of Systems: Review Of Systems: See Below General: Reports: No Symptoms HEENT: Reports: No Symptoms Pulmonary: Reports: No Symptoms Cardiovascular: Reports: No Symptoms Gastrointestinal: Reports: No Symptoms Genitourinary: Reports: No Symptoms Musculoskeletal: Reports: No Symptoms Skin: Reports: No Symptoms Psychiatric: Reports: No Symptoms Neurological: Reports: No Symptoms L&D Exam - Exam Exam: See Below - Vital Signs Vital Signs: Last Vital Signs Temp 99.3 F 05/15/20 09:20 Pulse Resp 14 05/15/20 09:20 BP 139/93 H 05/15/20 09:20 Pulse Ox 97 05/15/20 09:20 Weight: 152 lb 14.4 oz - OB Specific Contraction Intensity: Mild Movement: Active Heart Tones: Present - Exam General: Alert, Oriented HEENT: Conjunctiva Clear, EOMI, Hearing Intact Lungs: Clear to Auscultation, Normal Respiratory Effort Cardiovascular: Regular Rate, Regular Rhythm GI/Abdominal Exam: Normal Bowel Sounds, Soft, Non-Tender Extremities: Normal Inspection, Non-Tender, No Pedal Edema, Normal Capillary Refill Skin: Warm, Dry, Intact Neurological: Cranial Nerves Intact Psychiatric: Alert, Normal Affect, Normal Mood - Patient Data Lab Results Last 24 hrs: Laboratory Results - last 24 hr 05/15/20 05/15/20 05/15/20 Range/Units 09:30 10:20 10:23 WBC 12.00 H (3.98-10.04) K/mm3 RBC 4.26 (3.98-5.22) M/mm3 Hgb 12.8 (11.2-15.7) gm/dl Hct 38.2 (34.1-44.9) % MCV 89.7 (79.4-94.8) fl MCH 30.0 (25.6-32.2) pg MCHC 33.5 (32.2-35.5) g/dl RDW Std Deviation 42.0 (36.4-46.3) fL Plt Count 263 (182-369) K/mm3 MPV 10.3 (9.4-12.3) fl Neut % (Auto) 69.7 (34.0-71.1) % Lymph % (Auto) 19.3 (19.3-51.7) % [place] % (Auto) 6.5 (4.7-12.5) % Eos % (Auto) 4.0 (0.7-5.8) Baso % (Auto) 0.2 (0.1-1.2) % Neut # (Auto) 8.37 H (1.56-6.13) K/mm3 Lymph # (Auto) 2.31 (1.18-3.74) K/mm3 [place] # (Auto) 0.78 H (0.24-0.36) K/mm3 Eos # (Auto) 0.48 H (0.04-0.36) K/mm3 Baso # (Auto) 0.02 (0.01-0.08) K/mm3 Membrane Rupture Positive H SARS-CoV-2 RNA (TEA) Negative (NEGATIVE) Result Diagrams: 05/15/20 10:23 - Problem List (1) Spontaneous rupture of amniotic membranes SNOMED Code(s): 663097727 ICD Code: HLB8246 - Status: Acute Current Visit: Yes (2) Group B streptococcal carriage complicating SNOMED Code(s): 586819655233159 ICD Code: O99.820 - STREPTOCOCCUS B CARRIER STATE COMPLICATING Status: Acute Current Visit: Yes Problem List Initiated/Reviewed/Updated: Yes Orders Last 24hrs: Active Orders 24 hr Category Date Time Status Patient Status [ADT] Routine ADT 05/15/20 09:33 Active Patient Status [ADT] Routine ADT 05/15/20 10:05 Active Activity as Tolerated [RC] PFP Care 05/15/20 10:05 Active Communication Order [RC] ASDIRECTED Care 05/15/20 10:05 Active Heart Tones [RC] ASDIRECTED Care 05/15/20 10:05 Active Non Stress Test [RC] PER UNIT ROUTINE Care 05/15/20 09:33 Active Non Stress Test [RC] PER UNIT ROUTINE Care 05/15/20 10:05 Active Notify Provider [RC] PFP Care 05/15/20 10:05 Active Notify Provider [RC] PRN Care 05/15/20 10:05 Active Peripheral IV Care [RC] . DIRECTED Care 05/15/20 10:05 Active Vaccines to be Administered [RC] PER UNIT ROUTINE Care 05/15/20 11:52 Active Vital Signs [RC] PER UNIT ROUTINE Care 05/15/20 09:33 Active Vital Signs [RC] PER UNIT ROUTINE Care 05/15/20 10:05 Active Regular Diet [DIET] Diet 05/15/20 Lunch Active RAPID PLASMA REAGIN,RPR [CHEM] Routine Lab 05/15/20 10:23 Received Ampicillin 1 gm Med 05/15/20 14:30 Active Sodium Chloride 0.9% [Normal Saline] 100 ml IV Q4H Lactated Ringers [Ringers, Lactated] 1,000 ml Med 05/15/20 10:15 Active IV ASDIRECTED Nalbuphine [Nubain] Med 05/15/20 10:05 Active 10 mg IVPUSH Q2H PRN Oxytocin/Lactated Ringers [Pitocin in LR 10 Units/1,000 Med 05/15/20 10:15 Active ML] 10 unit in 1,000 ml IV TITRATE Oxytocin/Lactated Ringers [Pitocin in LR 20 Units/1,000 Med 05/15/20 10:15 Active ML] 20 unit in 1,000 ml IV .CONTINUOUS Sodium Chloride 0.9% [Saline Flush] Med 05/15/20 10:05 Active 10 ml FLUSH ASDIRECTED PRN Electronic Heart Tones Ext w TOCO [WOMSER] Oth 05/15/20 10:05 Ordered Routine Electronic Heart Tones Internal [WOMSER] Per Unit Oth 05/15/20 10:05 Ordered Routine Peripheral IV Insertion Adult [OM.PC] Routine Oth 05/15/20 10:05 Ordered Resuscitation Status Routine Resus Stat 05/15/20 09:33 Ordered Medication Orders Lactated Ringer's (Ringers, Lactated) 1,000 mls @ 100 mls/hr IV ASDIRECTED TIFF Last Admin: 05/15/20 10:50 Dose: 100 mls/hr Documented by: ALEXANDER Ampicillin Sodium 1 gm/ Sodium (Chloride) 100 mls @ 200 mls/hr IV Q4H TIFF Oxytocin/Lactated Ringer's (Pitocin In Lr 10 Units/1,000 Ml) 10 unit in 1,000 mls @ 12 mls/hr IV TITRATE TIFF; Protocol Last Titration: 05/15/20 12:55 Dose: 8 munits/min, 48 mls/hr Documented by: Titration: 05/15/20 12:25 Dose: 6 munits/min, 36 mls/hr Documented by: Titration: 05/15/20 11:37 Dose: 4 munits/min, 24 mls/hr Documented by: Admin: 05/15/20 10:53 Dose: 2 munits/min, 12 mls/hr Documented by: ALEXANDER Oxytocin/Lactated Ringer's (Pitocin In Lr 20 Units/1,000 Ml) 20 unit in 1,000 mls @ 500 mls/hr IV .CONTINUOUS TIFF Nalbuphine HCl (Nubain) 10 mg IVPUSH Q2H PRN PRN Reason: Pain Sodium Chloride (Saline Flush) 10 ml FLUSH ASDIRECTED PRN PRN Reason: Keep Vein Open Assessment/Plan Comment:: 1. SROM at 37 weeks - monitor FHR, increase pitocin as needed 2. GBS + - has received one dose of Ampicillin 3. O+ with negative antibody screen 4. Rubella immune 5. Asthma - avoid Hemabate for hemorrhage <Carlos Santos - Last Filed: 05/15/20 15:16> L&D History of Present Illness - General Admit Problem/Dx: Patient Status Order with Admit Dx/Problem 05/15/20 09:33 Patient Status [ADT] Routine 05/15/20 10:05 Patient Status [ADT] Routine Admission Diagnosis/Problem Admission Diagnosis/Problem L&D Exam - Vital Signs Vital Signs: Last Vital Signs Temp 99.3 F 05/15/20 09:20 Pulse Resp 14 05/15/20 09:20 BP 139/93 H 05/15/20 09:20 Pulse Ox 97 05/15/20 09:20 - Patient Data Lab Results Last 24 hrs: Laboratory Results - last 24 hr 05/15/20 05/15/20 05/15/20 Range/Units 09:30 10:20 10:23 WBC 12.00 H (3.98-10.04) K/mm3 RBC 4.26 (3.98-5.22) M/mm3 Hgb 12.8 (11.2-15.7) gm/dl Hct 38.2 (34.1-44.9) % MCV 89.7 (79.4-94.8) fl MCH 30.0 (25.6-32.2) pg MCHC 33.5 (32.2-35.5) g/dl RDW Std Deviation 42.0 (36.4-46.3) fL Plt Count 263 (182-369) K/mm3 MPV 10.3 (9.4-12.3) fl Neut % (Auto) 69.7 (34.0-71.1) % Lymph % (Auto) 19.3 (19.3-51.7) % [place] % (Auto) 6.5 (4.7-12.5) % Eos % (Auto) 4.0 (0.7-5.8) Baso % (Auto) 0.2 (0.1-1.2) % Neut # (Auto) 8.37 H (1.56-6.13) K/mm3 Lymph # (Auto) 2.31 (1.18-3.74) K/mm3 [place] # (Auto) 0.78 H (0.24-0.36) K/mm3 Eos # (Auto) 0.48 H (0.04-0.36) K/mm3 Baso # (Auto) 0.02 (0.01-0.08) K/mm3 Membrane Rupture Positive H SARS-CoV-2 RNA (TEA) Negative (NEGATIVE) Result Diagrams: 05/15/20 10:23 - Problem List (1) First trimester SNOMED Code(s): 17897577 ICD Code: Z34.91 - ENCNTR FOR SUPRVSN OF NORMAL PREG, UNSP, FIRST TRIMESTER Status: Acute Current Visit: No (2) Hyperemesis gravidarum SNOMED Code(s): 35878837 ICD Code: O21.0 - MILD HYPEREMESIS GRAVIDARUM Status: Acute Current Visit: No Problem List Initiated/Reviewed/Updated: No Orders Last 24hrs: Active Orders 24 hr Category Date Time Status Patient Status [ADT] Routine ADT 05/15/20 09:33 Active Patient Status [ADT] Routine ADT 05/15/20 10:05 Active Activity as Tolerated [RC] PFP Care 05/15/20 10:05 Active Communication Order [RC] ASDIRECTED Care 05/15/20 10:05 Active Heart Tones [RC] ASDIRECTED Care 05/15/20 10:05 Active Non Stress Test [RC] PER UNIT ROUTINE Care 05/15/20 09:33 Active Non Stress Test [RC] PER UNIT ROUTINE Care 05/15/20 10:05 Active Notify Provider [RC] PFP Care 05/15/20 10:05 Active Notify Provider [RC] PRN Care 05/15/20 10:05 Active Peripheral IV Care [RC] . DIRECTED Care 05/15/20 10:05 Active Vaccines to be Administered [RC] PER UNIT ROUTINE Care 05/15/20 11:52 Active Vital Signs [RC] PER UNIT ROUTINE Care 05/15/20 09:33 Active Vital Signs [RC] PER UNIT ROUTINE Care 05/15/20 10:05 Active Regular Diet [DIET] Diet 05/15/20 Lunch Active RAPID PLASMA REAGIN,RPR [CHEM] Routine Lab 05/15/20 10:23 Received Ampicillin 1 gm Med 05/15/20 14:30 Active Sodium Chloride 0.9% [Normal Saline] 100 ml IV Q4H Lactated Ringers [Ringers, Lactated] 1,000 ml Med 05/15/20 10:15 Active IV ASDIRECTED Nalbuphine [Nubain] Med 05/15/20 10:05 Active 10 mg IVPUSH Q2H PRN Oxytocin/Lactated Ringers [Pitocin in LR 10 Units/1,000 Med 05/15/20 10:15 Active ML] 10 unit in 1,000 ml IV TITRATE Oxytocin/Lactated Ringers [Pitocin in LR 20 Units/1,000 Med 05/15/20 10:15 Active ML] 20 unit in 1,000 ml IV .CONTINUOUS Sodium Chloride 0.9% [Saline Flush] Med 05/15/20 10:05 Active 10 ml FLUSH ASDIRECTED PRN Electronic Heart Tones Ext w TOCO [WOMSER] Oth 05/15/20 10:05 Ordered Routine Electronic Heart Tones Internal [WOMSER] Per Unit Oth 05/15/20 10:05 Ordered Routine Peripheral IV Insertion Adult [OM.PC] Routine Oth 05/15/20 10:05 Ordered Resuscitation Status Routine Resus Stat 05/15/20 09:33 Ordered Medication Orders Lactated Ringer's (Ringers, Lactated) 1,000 mls @ 100 mls/hr IV ASDIRECTED TIFF Last Admin: 05/15/20 10:50 Dose: 100 mls/hr Documented by: ALEXANDER Ampicillin Sodium 1 gm/ Sodium (Chloride) 100 mls @ 200 mls/hr IV Q4H TIFF Last Admin: 05/15/20 14:37 Dose: 200 mls/hr Documented by: ALEXANDER Oxytocin/Lactated Ringer's (Pitocin In Lr 10 Units/1,000 Ml) 10 unit in 1,000 mls @ 12 mls/hr IV TITRATE TIFF; Protocol Last Titration: 05/15/20 15:12 Dose: 16 munits/min, 96 mls/hr Documented by: Titration: 05/15/20 14:30 Dose: 14 munits/min, 84 mls/hr Documented by: Titration: 05/15/20 13:54 Dose: 12 munits/min, 72 mls/hr Documented by: Titration: 05/15/20 13:24 Dose: 10 munits/min, 60 mls/hr Documented by: Titration: 05/15/20 12:55 Dose: 8 munits/min, 48 mls/hr Documented by: Titration: 05/15/20 12:25 Dose: 6 munits/min, 36 mls/hr Documented by: Titration: 05/15/20 11:37 Dose: 4 munits/min, 24 mls/hr Documented by: Admin: 05/15/20 10:53 Dose: 2 munits/min, 12 mls/hr Documented by: ALEXANDER Oxytocin/Lactated Ringer's (Pitocin In Lr 20 Units/1,000 Ml) 20 unit in 1,000 mls @ 500 mls/hr IV .CONTINUOUS TIFF Nalbuphine HCl (Nubain) 10 mg IVPUSH Q2H PRN PRN Reason: Pain Sodium Chloride (Saline Flush) 10 ml FLUSH ASDIRECTED PRN PRN Reason: Keep Vein Open Assessment/Plan Comment:: Patient seen and examined by me and discussed with student.
[2020-05-15] MEDS: Ampicillin 1 GM in Sodium Chloride 0.9% 100 ML IV SCH ×3 (14:37→22:04)
[2020-05-15] MEDS ORDERED: Acetaminophen 325 MG Tab PO PRN (15:52)
--- NOTE | 2020-05-15 16:01 | PCM.SN.2 ---
- Free Text/Narrative Note: Cervix 1-2, 50% effaced, posterior soft and floating presenting part Cephalic confirmed by beside USG. AmniSure positive on presentation to L&D. Gross pooling in vagina. GBS positive, on antibiotics. Rapid covid test negative. Continuing Pitocin augmentation. Cat I FHR.
--- NOTE | 2020-05-15 16:38 | PCM.PREANE ---
Preanesthetic Assessment - Procedure Proposed Procedure: jaison - Anesthesia/Transfusion/Family Hx Anesthesia History: No Prior Anesthesia Family History of Anesthesia Reaction: No Transfusion History: No Prior Transfusion(s) - Review of Systems General: No Symptoms Pulmonary: No Symptoms Cardiovascular: No Symptoms, Other (upper rib pain) Gastrointestinal: Nausea (mrning sickness on and off) Neurological: No Symptoms Other: Reports: Anxiety - Physical Assessment Vital Signs: Last Vital Signs Temp 99.3 F 05/15/20 09:20 Pulse Resp 14 05/15/20 09:20 BP 139/93 H 05/15/20 09:20 Pulse Ox 97 05/15/20 09:20 Height: 5 ft Weight: 69.354 kg ASA Class: 2 Mental Status: Alert & Oriented x3 Airway Class: Mallampati = 1 Dentition: Reports: Normal Dentition Thyro-Mental Finger Breadths: 3 Mouth Opening Finger Breadths: 3 ROM/Head Extension: Full Lungs: Clear to Auscultation, Normal Respiratory Effort Cardiovascular: Regular Rate, Regular Rhythm - Lab Values: Laboratory Last Values WBC 12.00 K/mm3 (3.98-10.04) H 05/15/20 10:23 RBC 4.26 M/mm3 (3.98-5.22) 05/15/20 10:23 Hgb 12.8 gm/dl (11.2-15.7) 05/15/20 10:23 Hct 38.2 % (34.1-44.9) 05/15/20 10:23 MCV 89.7 fl (79.4-94.8) 05/15/20 10:23 MCH 30.0 pg (25.6-32.2) 05/15/20 10:23 MCHC 33.5 g/dl (32.2-35.5) 05/15/20 10:23 RDW Std Deviation 42.0 fL (36.4-46.3) 05/15/20 10:23 Plt Count 263 K/mm3 (182-369) 05/15/20 10:23 MPV 10.3 fl (9.4-12.3) 05/15/20 10:23 Neut % (Auto) 69.7 % (34.0-71.1) 05/15/20 10:23 Lymph % (Auto) 19.3 % (19.3-51.7) 05/15/20 10:23 [place] % (Auto) 6.5 % (4.7-12.5) 05/15/20 10:23 Eos % (Auto) 4.0 (0.7-5.8) 05/15/20 10:23 Baso % (Auto) 0.2 % (0.1-1.2) 05/15/20 10:23 Neut # (Auto) 8.37 K/mm3 (1.56-6.13) H 05/15/20 10:23 Lymph # (Auto) 2.31 K/mm3 (1.18-3.74) 05/15/20 10:23 [place] # (Auto) 0.78 K/mm3 (0.24-0.36) H 05/15/20 10:23 Eos # (Auto) 0.48 K/mm3 (0.04-0.36) H 05/15/20 10:23 Baso # (Auto) 0.02 K/mm3 (0.01-0.08) 05/15/20 10:23 Membrane Rupture Positive H 05/15/20 09:30 SARS-CoV-2 RNA (TEA) Negative (NEGATIVE) 05/15/20 10:20 - Allergies Allergies/Adverse Reactions: Allergies Allergy/AdvReac Type Severity Reaction Status Date / Time No Known Allergies Allergy Verified 05/15/20 09:40 - Blood Blood Available: No - Acknowledgements Anesthesia Type Planned: Epidural Pt an Appropriate Candidate for the Planned Anesthesia: Yes Alternatives and Risks of Anesthesia Discussed w Pt/Guardian: Yes Pt/Guardian Understands and Agrees with Anesthesia Plan: Yes PreAnesthesia Questionnaire - Past Health History Medical/Surgical History: Denies Medical/Surgical History Cardiovascular History: Reports: None Respiratory History: Reports: Asthma Gastrointestinal History: Reports: [employer] History: Reports: : 1 Para: 0 Musculoskeletal History: Reports: None Psychiatric History: Reports: Anxiety Endocrine/Metabolic History: Reports: None - SUBSTANCE USE Tobacco Use Status *Q: Never Tobacco User Tobacco Use Within Last Twelve Months: No Second Hand Smoke Exposure: No Days Per Week of Alcohol Use: 0 Recreational Drug Use History: No - HOME MEDS Home Medications: Home Meds Pnv No.95/Ferrous Fum/Folic AC [ Tablet] 1 each PO DAILY 03/24/20 [History] - CURRENT (IN HOUSE) MEDS Current Meds: Current Medications Acetaminophen (Tylenol) 650 mg PO Q4H PRN PRN Reason: Headache Last Admin: 05/15/20 16:03 Dose: 650 mg Documented by: Lactated Ringer's (Ringers, Lactated) 1,000 mls @ 100 mls/hr IV ASDIRECTED TIFF Last Admin: 05/15/20 10:50 Dose: 100 mls/hr Documented by: Ampicillin Sodium 1 gm/ Sodium (Chloride) 100 mls @ 200 mls/hr IV Q4H TIFF Last Admin: 05/15/20 14:37 Dose: 200 mls/hr Documented by: Oxytocin/Lactated Ringer's (Pitocin In Lr 10 Units/1,000 Ml) 10 unit in 1,000 mls @ 12 mls/hr IV TITRATE TIFF; Protocol Last Titration: 05/15/20 16:25 Dose: 20 munits/min, 120 mls/hr Documented by: Oxytocin/Lactated Ringer's (Pitocin In Lr 20 Units/1,000 Ml) 20 unit in 1,000 mls @ 500 mls/hr IV .CONTINUOUS TIFF Oxytocin/Lactated Ringer's (Pitocin In Lr 20 Units/1,000 Ml) 20 unit in 1,000 mls @ 66 mls/hr IV TITRATE TIFF; Protocol Nalbuphine HCl (Nubain) 10 mg IVPUSH Q2H PRN PRN Reason: Pain Sodium Chloride (Saline Flush) 10 ml FLUSH ASDIRECTED PRN PRN Reason: Keep Vein Open Discontinued Medications Diphtheria/Tetanus/Acell Pertussis (Adacel) 0.5 ml IM .ONCE ONE Stop: 05/15/20 11:53 Ampicillin Sodium 2 gm/ Sodium (Chloride) 100 mls @ 200 mls/hr IV ONETIME ONE Stop: 05/15/20 10:59 Last Admin: 05/15/20 10:51 Dose: 200 mls/hr Documented by:
[2020-05-15] MEDS ORDERED: Bupivacaine/fentaNYL/NS 100 ML Bag EPIDUR PRN (16:42)
[2020-05-15] MEDS ORDERED: fentaNYL 100 MCG/2 ML SDV EPIDUR PRN (16:42)
[2020-05-15] MEDS ORDERED: diphenhydrAMINE 50 MG/ML SDV IVPUSH PRN (16:42)
[2020-05-15] MEDS ORDERED: ePHEDrine 50 MG/ML SDV IVPUSH PRN (16:42)
--- NOTE | 2020-05-15 19:15 | PCM.SN.2 ---
- Free Text/Narrative Note: At 190105/15/2020 Amniotomy performed. Clear fluid. FHR Cat I before and after amniotomy. Cervix 2 cm, 80%, soft, posterior, vertex presentation.
[2020-05-16] MEDS: Lactated Ringers 1,000 ML IV SCH (01:22)
[2020-05-16] MEDS ORDERED: Lidocaine 1% 50 ML MDV ONE (03:27)
--- NOTE | 2020-05-16 07:35 | PCM.DEL ---
<Yuan Antonio - Last Filed: 05/16/20 08:35> L & D Note - General Info Date of Service: 05/16/20 Mother's Due Date: 06/05/20 - Delivery Note Labor: Spontaneous, Augmented by ARM, Augmented by Oxytocin Delivery Outcome: Livebirth Infant Delivery Method: Spontaneous Vaginal Delivery-Single Delivery Mode: Spontaneous Presentation: Right Occiput Anterior (KELLY) Nuchal Cord: Present, Reduced Prep: Povidone-Iodine (Betadine Anesthesia Type: Epidural Anesthetic: Lidocaine (Xylocaine) 1% Plain Local Anesthetic Volume: 3cc Amniotic Fluid Description: Clear Episiotomy Type: None Laceration: 1st Degree Suture type: Other (Monocryl ) Suture size: 3-0 Placenta: Intact, Spontaneous Cord: 3 Vessels Estimated Blood Loss: 250 Resuscitation Needed: No [place]: Suctioned, Bulb Syringe, Stimulated, Warmed Provider: Radha Blake Score 1 min: 5 Score 5 min: 8 Second Stage Interventions: Reports: Encouragement Given, Pushing Effectively Delivery Comments (Free Text/Narrative):: 24 year old GBS+ O+ female at 37-0 weeks gestational age who presented for evaluation of SROM at 7 am on 05/16/19. Patient given pitocin and allowed to progress. Membranes were ruptured at again due to presence of bulging bag and the patient began progressing. Epidural was placed. The patient received in total a loading dose of 2 mg of Ampicillin followed by 1 mg every 4 hours for a total of 5 mg. The patient was complete at 0216 and began pushing. of a live male infant weighing 2290 g/5 lbs 0.8 ounces occurred at 0316 am on 05/16/20. A single nuchal cord was detected and reduced around the infant's shoulder due to speed of delivery. The was suctioned and sent to the warmer for stimulation. APGARs 5/8 at 1 and 5 minutes respectively. The cord was clamped and cut by the father. Three vessels were identified and cord blood was obtained. Placenta was delivered spontaneously at 0330 in the herrera presentation and was inspected and found to be intact. A first degree laceration of the right medial labia majora at the level of the urethra was noted on inspection. This was repaired with 3 mL of Lidocaine without epi and with running 3-0 monocryl. Noted 1 x 1 x 1 cm hematoma midline at the vaginal in troitus; this did not enlarge. EBL 250 with good uterine tone. - General Info Date of Service: 05/16/20 Admission Dx/Problem (Free Text): Patient Status Order with Admit Dx/Problem of a live male weighing 2290 g at 37-1 weeks gestational age to a 24 year old female - Patient Data Vitals - Most Recent: Last Vital Signs Temp 99.3 F 05/15/20 09:20 Pulse Resp 14 05/15/20 09:20 BP 139/93 H 05/15/20 09:20 Pulse Ox 97 05/15/20 09:20 Weight - Most Recent: 152 lb 14.4 oz Lab Results Last 24 Hours: Laboratory Results - last 24 hr 05/15/20 05/15/20 05/15/20 Range/Units 09:30 10:20 10:23 WBC (3.98-10.04) K/mm3 RBC (3.98-5.22) M/mm3 Hgb (11.2-15.7) gm/dl Hct (34.1-44.9) % MCV (79.4-94.8) fl MCH (25.6-32.2) pg MCHC (32.2-35.5) g/dl RDW Std Deviation (36.4-46.3) fL Plt Count (182-369) K/mm3 MPV (9.4-12.3) fl Neut % (Auto) (34.0-71.1) % Lymph % (Auto) (19.3-51.7) % [place] % (Auto) (4.7-12.5) % Eos % (Auto) (0.7-5.8) Baso % (Auto) (0.1-1.2) % Neut # (Auto) (1.56-6.13) K/mm3 Lymph # (Auto) (1.18-3.74) K/mm3 [place] # (Auto) (0.24-0.36) K/mm3 Eos # (Auto) (0.04-0.36) K/mm3 Baso # (Auto) (0.01-0.08) K/mm3 Membrane Rupture Positive H RPR Non-reactive (NONREACTIVE) SARS-CoV-2 RNA (TEA) Negative (NEGATIVE) 05/15/20 Range/Units 10:23 WBC 12.00 H (3.98-10.04) K/mm3 RBC 4.26 (3.98-5.22) M/mm3 Hgb 12.8 (11.2-15.7) gm/dl Hct 38.2 (34.1-44.9) % MCV 89.7 (79.4-94.8) fl MCH 30.0 (25.6-32.2) pg MCHC 33.5 (32.2-35.5) g/dl RDW Std Deviation 42.0 (36.4-46.3) fL Plt Count 263 (182-369) K/mm3 MPV 10.3 (9.4-12.3) fl Neut % (Auto) 69.7 (34.0-71.1) % Lymph % (Auto) 19.3 (19.3-51.7) % [place] % (Auto) 6.5 (4.7-12.5) % Eos % (Auto) 4.0 (0.7-5.8) Baso % (Auto) 0.2 (0.1-1.2) % Neut # (Auto) 8.37 H (1.56-6.13) K/mm3 Lymph # (Auto) 2.31 (1.18-3.74) K/mm3 [place] # (Auto) 0.78 H (0.24-0.36) K/mm3 Eos # (Auto) 0.48 H (0.04-0.36) K/mm3 Baso # (Auto) 0.02 (0.01-0.08) K/mm3 Membrane Rupture RPR (NONREACTIVE) SARS-CoV-2 RNA (TEA) (NEGATIVE) Med Orders - Current: Current Medications Acetaminophen (Tylenol) 650 mg PO Q4H PRN PRN Reason: Headache Last Admin: 05/15/20 16:03 Dose: 650 mg Documented by: Diphenhydramine HCl (Benadryl) 25 mg IVPUSH Q6H PRN PRN Reason: pruritis Ephedrine Sulfate (Ephedrine Sulfate) 5 mg IVPUSH ASDIRECTED PRN PRN Reason: Hypotension Fentanyl (Sublimaze) 100 mcg EPIDUR Q3H PRN PRN Reason: Pain Last Admin: 05/15/20 21:05 Dose: 100 mcg Documented by: Fentanyl/Bupivacaine HCl (Fentanyl/Bupivacaine/Ns 2 Mcg-0.125% 100 Ml) 100 ml EPIDUR ASDIRECTED PRN PRN Reason: Pain Last Admin: 05/15/20 21:05 Dose: 100 ml Documented by: Lactated Ringer's (Ringers, Lactated) 1,000 mls @ 100 mls/hr IV ASDIRECTED TIFF Last Admin: 05/16/20 01:22 Dose: 100 mls/hr Documented by: Ampicillin Sodium 1 gm/ Sodium (Chloride) 100 mls @ 200 mls/hr IV Q4H TIFF Last Admin: 05/15/20 22:04 Dose: 200 mls/hr Documented by: Oxytocin/Lactated Ringer's (Pitocin In Lr 10 Units/1,000 Ml) 10 unit in 1,000 mls @ 12 mls/hr IV TITRATE TIFF; Protocol Last Admin: 05/15/20 20:45 Dose: 18 munits/min, 108 mls/hr Documented by: Oxytocin/Lactated Ringer's (Pitocin In Lr 20 Units/1,000 Ml) 20 unit in 1,000 mls @ 500 mls/hr IV .CONTINUOUS TIFF Oxytocin/Lactated Ringer's (Pitocin In Lr 20 Units/1,000 Ml) 20 unit in 1,000 mls @ 66 mls/hr IV TITRATE TIFF; Protocol Nalbuphine HCl (Nubain) 10 mg IVPUSH Q2H PRN PRN Reason: Pain Sodium Chloride (Saline Flush) 10 ml FLUSH ASDIRECTED PRN PRN Reason: Keep Vein Open Discontinued Medications Diphtheria/Tetanus/Acell Pertussis (Adacel) 0.5 ml IM .ONCE ONE Stop: 05/15/20 11:53 Ampicillin Sodium 2 gm/ Sodium (Chloride) 100 mls @ 200 mls/hr IV ONETIME ONE Stop: 05/15/20 10:59 Last Admin: 05/15/20 10:51 Dose: 200 mls/hr Documented by: - Problem List & Annotations (1) Spontaneous rupture of amniotic membranes SNOMED Code(s): 051711117 Code(s): ARG6781 - Status: Acute Current Visit: Yes (2) Group B streptococcal carriage complicating SNOMED Code(s): 356015123736194 Code(s): O99.820 - STREPTOCOCCUS B CARRIER STATE COMPLICATING Status: Acute Current Visit: Yes (3) First degree perineal laceration SNOMED Code(s): 20511587 Code(s): O70.0 - FIRST DEGREE PERINEAL LACERATION DURING DELIVERY Status: Acute Current Visit: Yes (4) Nuchal cord SNOMED Code(s): 287155259 Code(s): APT8049 - Status: Acute Current Visit: Yes (5) Normal spontaneous vaginal delivery SNOMED Code(s): 12034919, 502082408 Code(s): O80 - ENCOUNTER FOR FULL-TERM UNCOMPLICATED DELIVERY Status: Acute Current Visit: Yes - Problem List Review Problem List Initiated/Reviewed/Updated: Yes - Plan Plan:: 1. SROM of a 37-0 week gestational age female 2. O+ with negative antibody screen 3. GBS + - received 2 g Ampicillin followed by 1 gram every 4 hours for a total of 5 grams prior to delivery. Remained afebrile during labor 4. Rubella immune 5. of a live male weighing 2290 g, APGARs 5/8 6. 1st degree perineal laceration <Carlos Santos - Last Filed: 05/18/20 12:58> - Patient Data Vitals - Most Recent: Last Vital Signs Temp 98.8 F 05/18/20 03:46 Pulse 63 05/18/20 03:46 Resp 14 05/18/20 03:46 BP 114/63 05/18/20 03:46 Pulse Ox 99 05/18/20 03:46 I&O - Last 24 Hours: Intake & Output 05/17/20 05/18/20 05/18/20 22:59 06:59 14:59 Intake Total 0 Balance 0 Med Orders - Current: Current Medications Acetaminophen (Acetaminophen 325 Mg Tab) 650 mg PO Q4H PRN PRN Reason: mild pain or fever Last Admin: 05/16/20 09:56 Dose: 650 mg Documented by: Benzocaine/Menthol (Benzocaine/Menthol 20%-0.5% [place] 56 Gm Canister) 0 gm TOP ASDIRECTED PRN PRN Reason: Perineal Comfort Measure Last Admin: 05/16/20 10:05 Dose: 1 can Documented by: Docusate Sodium (Docusate Sodium 100 Mg Cap) 100 mg PO BID PRN PRN Reason: Constipation Last Admin: 05/18/20 06:34 Dose: 100 mg Documented by: Ibuprofen (Ibuprofen 600 Mg Tab) 600 mg PO Q4H PRN PRN Reason: Mild pain or fever Last Admin: 05/18/20 06:33 Dose: 600 mg Documented by: Bryson Castellanos (Bryson Castellanos Medicated Pads 40/Jar) 1 pad TOP ASDIRECTED PRN PRN Reason: Pain Last Admin: 05/16/20 10:04 Dose: 1 tub Documented by: Discontinued Medications Acetaminophen (Acetaminophen 325 Mg Tab) 650 mg PO Q4H PRN PRN Reason: Headache Last Admin: 05/15/20 16:03 Dose: 650 mg Documented by: Diphenhydramine HCl (Diphenhydramine 50 Mg/Ml Sdv) 25 mg IVPUSH Q6H PRN PRN Reason: pruritis Diphtheria/Tetanus/Acell Pertussis (Diphtheria,Pertussis(Acell),Tetanus Vaccine 0.5 Ml Syringe) 0.5 ml IM .ONCE ONE Stop: 05/15/20 11:53 Ephedrine Sulfate (Ephedrine 50 Mg/Ml Sdv) 5 mg IVPUSH ASDIRECTED PRN PRN Reason: Hypotension Fentanyl (Fentanyl 100 Mcg/2 Ml Sdv) 100 mcg EPIDUR Q3H PRN PRN Reason: Pain Last Admin: 05/15/20 21:05 Dose: 100 mcg Documented by: Fentanyl/Bupivacaine HCl (Bupivacaine/Fentanyl/Ns 100 Ml Bag) 100 ml EPIDUR ASDIRECTED PRN PRN Reason: Pain Last Admin: 05/15/20 21:05 Dose: 100 ml Documented by: Lactated Ringer's (Ringers, Lactated) 1,000 mls @ 100 mls/hr IV ASDIRECTED [facility] Last Admin: 05/16/20 01:22 Dose: 100 mls/hr Documented by: Ampicillin Sodium 2 gm/ Sodium (Chloride) 100 mls @ 200 mls/hr IV ONETIME ONE Stop: 05/15/20 10:59 Last Admin: 05/15/20 10:51 Dose: 200 mls/hr Documented by: Ampicillin Sodium 1 gm/ Sodium (Chloride) 100 mls @ 200 mls/hr IV Q4H [facility] Last Admin: 05/15/20 22:04 Dose: 200 mls/hr Documented by: Oxytocin/Lactated Ringer's (Pitocin In Lr 10 Units/1,000 Ml) 10 unit in 1,000 mls @ 12 mls/hr IV TITRATE TIFF; Protocol Last Admin: 05/15/20 20:45 Dose: 18 munits/min, 108 mls/hr Documented by: Oxytocin/Lactated Ringer's (Pitocin In Lr 20 Units/1,000 Ml) 20 unit in 1,000 mls @ 500 mls/hr IV .CONTINUOUS TIFF Oxytocin/Lactated Ringer's (Pitocin In Lr 20 Units/1,000 Ml) 20 unit in 1,000 mls @ 66 mls/hr IV TITRATE TIFF; Protocol Lidocaine HCl (Lidocaine 1% 50 Ml Mdv) Confirm Administered Dose 50 ml .ROUTE .STK-MED ONE Stop: 05/16/20 03:28 Lidocaine/Epinephrine (Lidocaine 1.5% With Epinephrine 1:200,000 5 Ml Amp) 5 ml .ROUTE .STK-MED ONE Stop: 05/16/20 08:01 Nalbuphine HCl (Nalbuphine 10 Mg/1 Ml Vial) 10 mg IVPUSH Q2H PRN PRN Reason: Pain Sodium Chloride (Sodium Chloride 0.9% 10 Ml Syringe) 10 ml FLUSH ASDIRECTED PRN PRN Reason: Keep Vein Open - Problem List & Annotations (1) First trimester SNOMED Code(s): 98279867 Code(s): Z34.91 - ENCNTR FOR SUPRVSN OF NORMAL PREG, UNSP, FIRST TRIMESTER Status: Acute Current Visit: No (2) Hyperemesis gravidarum SNOMED Code(s): 15006277 Code(s): O21.0 - MILD HYPEREMESIS GRAVIDARUM Status: Acute Current Visit: No - Problem List Review Problem List Initiated/Reviewed/Updated: No - Plan Plan:: Assisted student in delivery, discussed with student. Patient seen and examined by me, and assisted in delivery.
[2020-05-16] MEDS ORDERED: Lidocaine 1.5% with EPINEPHrine 1:200,000 5 ML Amp ONE (08:00)
--- NOTE | 2020-05-16 08:06 | PCM48HPAN ---
Post Anesthesia Note - EVALUATION WITHIN 48HRS OF ANESTHETIC Vital Signs in Normal Range: Yes Patient Participated in Evaluation: Yes Respiratory Function Stable: Yes Airway Patent: Yes Cardiovascular Function Stable: Yes Hydration Status Stable: Yes Pain Control Satisfactory: Yes Nausea and Vomiting Control Satisfactory: Yes Mental Status Recovered: Yes Vital Signs: Last Vital Signs Temp 37.4 C 05/15/20 09:20 Pulse Resp 14 05/15/20 09:20 BP 139/93 H 05/15/20 09:20 Pulse Ox 97 05/15/20 09:20
[2020-05-16] MEDS ORDERED: Acetaminophen 325 MG Tab PO PRN (09:50)
[2020-05-16] MEDS ORDERED: Benzocaine/Menthol 20%-0.5% Spray 56 GM Canister TOP PRN (09:50)
[2020-05-16] MEDS ORDERED: Witch Hazel Medicated Pads 40/Jar TOP PRN (09:50)
[2020-05-16] MEDS: Docusate Sodium 100 MG Cap PO PRN (14:21)
--- NOTE | 2020-05-17 07:52 | PCM.PNPP ---
<Yuan Antonio - Last Filed: 05/17/20 07:48> - General Info Date of Service: 05/17/20 Admission Dx/Problem (Free Text): Patient Status Order with Admit Dx/Problem of a live male infant weighing 2290 g at 37-1 weeks gestational age to a 24 year old female Subjective Update: Patient is doing well. Reports some stinging with urination due to stitches but denies other signs of a UTI. Reports that she had a small bowel movement yesterday. Is having some right sided pain following epidural. Denies headache, shortness of breath or chest pain. Attempted to pump but was unsuccessful. Is interested in trying again but is feeding baby formula right now. She did note some lochia. Has had difficulty sleeping secondary to worrying about her when the is out of the room or in the bassinet. Functional Status: Reports: Pain Controlled, Tolerating Diet, Ambulating, Urinating - Review of Systems General: Reports: No Symptoms HEENT: Reports: No Symptoms Pulmonary: Reports: No Symptoms Cardiovascular: Reports: No Symptoms Gastrointestinal: Reports: No Symptoms Genitourinary: Reports: No Symptoms Musculoskeletal: Reports: No Symptoms Skin: Reports: No Symptoms Neurological: Reports: No Symptoms Psychiatric: Reports: No Symptoms - General Info Date of Service: 05/17/20 - Patient Data Vital Signs - Most Recent: Last Vital Signs Temp 97.9 F 05/17/20 04:51 Pulse 74 05/17/20 04:51 Resp 14 05/17/20 04:51 BP 117/62 05/17/20 04:51 Pulse Ox 98 05/17/20 04:51 Weight - Most Recent: 69.354 kg I&O - Last 24 Hours: Intake & Output 05/16/20 05/17/20 05/17/20 22:59 06:59 14:59 Intake Total 240 Balance 240 Med Orders - Current: Current Medications Acetaminophen (Acetaminophen 325 Mg Tab) 650 mg PO Q4H PRN PRN Reason: mild pain or fever Last Admin: 05/16/20 09:56 Dose: 650 mg Documented by: Benzocaine/Menthol (Benzocaine/Menthol 20%-0.5% [place] 56 Gm Canister) 0 gm TOP ASDIRECTED PRN PRN Reason: Perineal Comfort Measure Last Admin: 05/16/20 10:05 Dose: 1 can Documented by: Docusate Sodium (Docusate Sodium 100 Mg Cap) 100 mg PO BID PRN PRN Reason: Constipation Last Admin: 05/16/20 14:21 Dose: 100 mg Documented by: Ibuprofen (Ibuprofen 600 Mg Tab) 600 mg PO Q4H PRN PRN Reason: Mild pain or fever Witch Jasmin (Witch Jasmin Medicated Pads 40/Jar) 1 pad TOP ASDIRECTED PRN PRN Reason: Pain Last Admin: 05/16/20 10:04 Dose: 1 tub Documented by: Discontinued Medications Acetaminophen (Acetaminophen 325 Mg Tab) 650 mg PO Q4H PRN PRN Reason: Headache Last Admin: 05/15/20 16:03 Dose: 650 mg Documented by: Diphenhydramine HCl (Diphenhydramine 50 Mg/Ml Sdv) 25 mg IVPUSH Q6H PRN PRN Reason: pruritis Diphtheria/Tetanus/Acell Pertussis (Diphtheria,Pertussis(Acell),Tetanus Vaccine 0.5 Ml Syringe) 0.5 ml IM .ONCE ONE Stop: 05/15/20 11:53 Ephedrine Sulfate (Ephedrine 50 Mg/Ml Sdv) 5 mg IVPUSH ASDIRECTED PRN PRN Reason: Hypotension Fentanyl (Fentanyl 100 Mcg/2 Ml Sdv) 100 mcg EPIDUR Q3H PRN PRN Reason: Pain Last Admin: 05/15/20 21:05 Dose: 100 mcg Documented by: Fentanyl/Bupivacaine HCl (Bupivacaine/Fentanyl/Ns 100 Ml Bag) 100 ml EPIDUR ASDIRECTED PRN PRN Reason: Pain Last Admin: 05/15/20 21:05 Dose: 100 ml Documented by: Lactated Ringer's (Ringers, Lactated) 1,000 mls @ 100 mls/hr IV ASDIRECTED [facility] Last Admin: 05/16/20 01:22 Dose: 100 mls/hr Documented by: Ampicillin Sodium 2 gm/ Sodium (Chloride) 100 mls @ 200 mls/hr IV ONETIME ONE Stop: 05/15/20 10:59 Last Admin: 05/15/20 10:51 Dose: 200 mls/hr Documented by: Ampicillin Sodium 1 gm/ Sodium (Chloride) 100 mls @ 200 mls/hr IV Q4H [facility] Last Admin: 05/15/20 22:04 Dose: 200 mls/hr Documented by: Oxytocin/Lactated Ringer's (Pitocin In Lr 10 Units/1,000 Ml) 10 unit in 1,000 mls @ 12 mls/hr IV TITRATE TIFF; Protocol Last Admin: 05/15/20 20:45 Dose: 18 munits/min, 108 mls/hr Documented by: Oxytocin/Lactated Ringer's (Pitocin In Lr 20 Units/1,000 Ml) 20 unit in 1,000 mls @ 500 mls/hr IV .CONTINUOUS TIFF Oxytocin/Lactated Ringer's (Pitocin In Lr 20 Units/1,000 Ml) 20 unit in 1,000 mls @ 66 mls/hr IV TITRATE TIFF; Protocol Lidocaine HCl (Lidocaine 1% 50 Ml Mdv) Confirm Administered Dose 50 ml .ROUTE .[facility] ONE Stop: 05/16/20 03:28 Nalbuphine HCl (Nalbuphine 10 Mg/1 Ml Vial) 10 mg IVPUSH Q2H PRN PRN Reason: Pain Sodium Chloride (Sodium Chloride 0.9% 10 Ml Syringe) 10 ml FLUSH ASDIRECTED PRN PRN Reason: Keep Vein Open - Interaction Infant Disposition, : in Room with Family Interaction: Holding Infant Feeding: Attempted ; Nursed Fair/Poor, Bottle Fed , Encouraged to Breastfeed Support Person: - Recovery Exam Fundal Tone: Firm Fundal Level: 1 Fingerbreadths Below Umbilicus Fundal Placement: Midline Lochia Amount: Scant Lochia Color: Rubra/Red Perineum Description: Other (see below) Other Perinuem Description: 1st degree with repair Episiotomy/Laceration: Approximated Urinary Elimination: Voided - Exam General: Alert, Oriented HEENT: Pupils Equal, EOMI Lungs: Clear to Auscultation, Normal Respiratory Effort Cardiovascular: Regular Rate, Regular Rhythm GI/Abdominal Exam: Normal Bowel Sounds, Soft, No Distention Extremities: Normal Inspection, Non-Tender Skin: Warm, Dry, Intact Neurological: No New Focal Deficit Psy/Mental Status: Alert, Normal Affect, Normal Mood - Problem List & Annotations (1) Spontaneous rupture of amniotic membranes SNOMED Code(s): 785988345 Code(s): [id number] - Status: Acute Current Visit: Yes (2) Group B streptococcal carriage complicating SNOMED Code(s): 655171251831281 Code(s): O99.820 - STREPTOCOCCUS B CARRIER STATE COMPLICATING Status: Acute Current Visit: Yes (3) First degree perineal laceration SNOMED Code(s): 04611987 Code(s): O70.0 - FIRST DEGREE PERINEAL LACERATION DURING DELIVERY Status: Acute Current Visit: Yes (4) Nuchal cord SNOMED Code(s): 569356728 Code(s): [id number] - Status: Acute Current Visit: Yes (5) Normal spontaneous vaginal delivery SNOMED Code(s): 71290984, 757840629 Code(s): O80 - ENCOUNTER FOR FULL-TERM UNCOMPLICATED DELIVERY Status: Acute Current Visit: Yes - My Orders Last 24 Hours: My Active Orders 05/16/20 09:50 Acetaminophen [TylenoL] 650 mg PO Q4H PRN Benzocaine/Menthol [Dermoplast Pain Relief [place]] See Dose Instructions TOP ASDIRECTED PRN Docusate Sodium [Colace] 100 mg PO BID PRN Ibuprofen [Motrin] 600 mg PO Q4H PRN witch Jasmin [Tucks] 1 pad TOP ASDIRECTED PRN Heat Therapy [OM.PC] PRN 05/16/20 09:50 Activity as Tolerated [RC] PER UNIT ROUTINE Vital Signs [RC] ,,, Assess Lochia [WOMSER] Per Unit Routine Assess Uterine Involution [WOMSER] Per Unit Routine Breast Pump [WOMSER] Per Unit Routine Ice Therapy [OM.PC] Per Unit Routine Perineal Care [OM.PC] Per Unit Routine Sitz Bath [OM.PC] Per Unit Routine 05/17/20 09:50 Heat Therapy [OM.PC] PRN - Plan Plan:: 1. SROM of a 37-0 week gestational age female 2. O+ with negative antibody screen 3. GBS + - received 2 g Ampicillin followed by 1 gram every 4 hours for a total of 5 grams prior to delivery. Remained afebrile during labor 4. Rubella immune 5. of a live male weighing 2290 g, APGARs 5/8 6. 1st degree perineal laceration 7. Activity as tolerated 8. Regular diet 9. Anticipate discharge in 24 hours pending pediatrics <Cedrick Gonzalez - Last Filed: 05/17/20 08:53> - Patient Data Vital Signs - Most Recent: Last Vital Signs Temp 36.6 C 05/17/20 04:51 Pulse 74 05/17/20 04:51 Resp 14 05/17/20 04:51 BP 117/62 05/17/20 04:51 Pulse Ox 98 05/17/20 04:51 I&O - Last 24 Hours: Intake & Output 05/16/20 05/17/20 05/17/20 22:59 06:59 14:59 Intake Total 240 Balance 240 Med Orders - Current: Current Medications Acetaminophen (Acetaminophen 325 Mg Tab) 650 mg PO Q4H PRN PRN Reason: mild pain or fever Last Admin: 05/16/20 09:56 Dose: 650 mg Documented by: Benzocaine/Menthol (Benzocaine/Menthol 20%-0.5% [place] 56 Gm Canister) 0 gm TOP ASDIRECTED PRN PRN Reason: Perineal Comfort Measure Last Admin: 05/16/20 10:05 Dose: 1 can Documented by: Docusate Sodium (Docusate Sodium 100 Mg Cap) 100 mg PO BID PRN PRN Reason: Constipation Last Admin: 05/16/20 14:21 Dose: 100 mg Documented by: Ibuprofen (Ibuprofen 600 Mg Tab) 600 mg PO Q4H PRN PRN Reason: Mild pain or fever Last Admin: 05/17/20 08:28 Dose: 600 mg Documented by: Bryson Castellanos (Bryson Ramosel Medicated Pads 40/Jar) 1 pad TOP ASDIRECTED PRN PRN Reason: Pain Last Admin: 05/16/20 10:04 Dose: 1 tub Documented by: Discontinued Medications Acetaminophen (Acetaminophen 325 Mg Tab) 650 mg PO Q4H PRN PRN Reason: Headache Last Admin: 05/15/20 16:03 Dose: 650 mg Documented by: Diphenhydramine HCl (Diphenhydramine 50 Mg/Ml Sdv) 25 mg IVPUSH Q6H PRN PRN Reason: pruritis Diphtheria/Tetanus/Acell Pertussis (Diphtheria,Pertussis(Acell),Tetanus Vaccine 0.5 Ml Syringe) 0.5 ml IM .ONCE ONE Stop: 05/15/20 11:53 Ephedrine Sulfate (Ephedrine 50 Mg/Ml Sdv) 5 mg IVPUSH ASDIRECTED PRN PRN Reason: Hypotension Fentanyl (Fentanyl 100 Mcg/2 Ml Sdv) 100 mcg EPIDUR Q3H PRN PRN Reason: Pain Last Admin: 05/15/20 21:05 Dose: 100 mcg Documented by: Fentanyl/Bupivacaine HCl (Bupivacaine/Fentanyl/Ns 100 Ml Bag) 100 ml EPIDUR ASDIRECTED PRN PRN Reason: Pain Last Admin: 05/15/20 21:05 Dose: 100 ml Documented by: Lactated Ringer's (Ringers, Lactated) 1,000 mls @ 100 mls/hr IV ASDIRECTED TIFF Last Admin: 05/16/20 01:22 Dose: 100 mls/hr Documented by: Ampicillin Sodium 2 gm/ Sodium (Chloride) 100 mls @ 200 mls/hr IV ONETIME ONE Stop: 05/15/20 10:59 Last Admin: 05/15/20 10:51 Dose: 200 mls/hr Documented by: Ampicillin Sodium 1 gm/ Sodium (Chloride) 100 mls @ 200 mls/hr IV Q4H TIFF Last Admin: 05/15/20 22:04 Dose: 200 mls/hr Documented by: Oxytocin/Lactated Ringer's (Pitocin In Lr 10 Units/1,000 Ml) 10 unit in 1,000 mls @ 12 mls/hr IV TITRATE TIFF; Protocol Last Admin: 05/15/20 20:45 Dose: 18 munits/min, 108 mls/hr Documented by: Oxytocin/Lactated Ringer's (Pitocin In Lr 20 Units/1,000 Ml) 20 unit in 1,000 mls @ 500 mls/hr IV .CONTINUOUS [facility] Oxytocin/Lactated Ringer's (Pitocin In Lr 20 Units/1,000 Ml) 20 unit in 1,000 mls @ 66 mls/hr IV TITRATE TIFF; Protocol Lidocaine HCl (Lidocaine 1% 50 Ml Mdv) Confirm Administered Dose 50 ml .ROUTE .[facility] ONE Stop: 05/16/20 03:28 Nalbuphine HCl (Nalbuphine 10 Mg/1 Ml Vial) 10 mg IVPUSH Q2H PRN PRN Reason: Pain Sodium Chloride (Sodium Chloride 0.9% 10 Ml Syringe) 10 ml FLUSH ASDIRECTED PRN PRN Reason: Keep Vein Open - Problem List & Annotations (1) First degree perineal laceration SNOMED Code(s): 79604921 Code(s): O70.0 - FIRST DEGREE PERINEAL LACERATION DURING DELIVERY Status: Acute Current Visit: Yes (2) Group B streptococcal carriage complicating SNOMED Code(s): 175817227922344 Code(s): O99.820 - STREPTOCOCCUS B CARRIER STATE COMPLICATING Status: Acute Current Visit: Yes (3) Normal spontaneous vaginal delivery SNOMED Code(s): 23179453, 979491807 Code(s): O80 - ENCOUNTER FOR FULL-TERM UNCOMPLICATED DELIVERY Status: Acute Current Visit: Yes (4) Nuchal cord SNOMED Code(s): 394912294 Code(s): TVI9681 - Status: Acute Current Visit: Yes - Problem List Review Problem List Initiated/Reviewed/Updated: Yes - Plan Plan:: Sheyla Morgan is a 24-year-old -0-0-1 female status post , PPD #1, complicated by GBS positive status and received antibiotics for prophylaxis, anxiety and depression Doing well Bottle feeding with some difficulty. Patient is trying to pump breastmilk as well. Assist as needed Lochia minimal. Continue to monitor for appropriate lochia. Continue routine care Restart Wellbutrin 150 mg daily for her anxiety/depression Anticipate discharge home tomorrow I have seen and evaluated the patient and discussed the patient's care and note with the student. I agree with the patient's note as above with the changes as noted. Cedrick Gonzalez MD 8:53 AM 05/17/2020
[2020-05-17] MEDS: Ibuprofen 600 MG Tab PO PRN ×3 (08:28→20:20)
[2020-05-17] MEDS: buPROPion 150 MG Tab.ER PO SCH (12:02)
--- NOTE | 2020-05-18 05:25 | PCM.DCSUM1 ---
Discharge Summary - Hospital Course Free Text/Narrative:: 24 year old 1 now para 1-0-0-1 GBS+ O+ female at 37-0 weeks gestational age who presented for evaluation of SROM at 7 am on 05/16/19. Patient given pitocin and allowed to progress. Membranes were ruptured at again due to presence of bulging bag and the patient began progressing. Epidural was placed. The patient received in total a loading dose of 2 mg of Ampicillin followed by 1 mg every 4 hours for a total of 5 mg. The patient was complete at 0216 and began pushing. of a live male weighing 2290 g/5 lbs 0.8 ounces occurred at 0316 am on 05/16/20. A single nuchal cord was detected and reduced around the infant's shoulder due to speed of delivery. The infant was suctioned and sent to the warmer for stimulation. APGARs 5/8 at 1 and 5 minutes respectively. The cord was clamped and cut by the father. Three vessels were identified and cord blood was obtained. Placenta was delivered spontaneously at 0330 in the herrera presentation and was inspected and found to be intact. A first degree laceration of the right medial labia majora at the level of the urethra was noted on inspection. This was repaired with 3 mL of Lidocaine without epi and with running 3-0 monocryl. Noted 1 x 1 x 1 cm hematoma midline at the vaginal introitus; this did not enlarge. EBL 250 with good uterine tone. patient has done very well. She is ambulating well, has minimal lochia and is voiding without concern. Signs of been stable in the period. She is desiring discharge home. Patient: Good Diagnosis: Stroke: No - Discharge Data Discharge Date: 05/18/20 Discharge Disposition: Home, Self-Care 01 Condition: Good - Referral to Home Health Primary Care Physician: Cedrick Gonzalez MD - Patient Summary/Data Consults: Consultations 05/16/20 14:38 Consult to Case Management/Tube Laser Operator [CONS] Routine - Patient Instructions Diet: Regular Diet as Tolerated (Regular diet with increased calcium and calories as recommended.) Activity: As Tolerated (No intercourse or tampons until bleeding resolves) Driving: May Drive Today Showering/Bathing: May Shower Showering/Bathing, Other: May take a bath Notify Provider of: Fever, Increased Pain, Swelling and Redness, Nausea and/or Vomiting - Discharge Plan Home Medications: Home Meds Pnv No.95/Ferrous Fum/Folic AC [ Tablet] 1 each PO DAILY 03/24/20 [History] buPROPion HCL [Wellbutrin Xl] 150 mg PO DAILY 05/17/20 [History] Acetaminophen [Tylenol] 650 mg PO Q4H PRN tablet 05/18/20 [Rx] Ibuprofen [Motrin] 600 mg PO Q4H PRN tablet 05/18/20 [Rx] Referrals: Cedrick Gonzalez MD [Primary Care Provider] - (Return to clinicDr. Gonzalez2 weeks.) - Discharge Summary/Plan Comment DC Time >30 min.: No Discharge Summary/Plan Comment: Discharge instructions: 1. Discharge home 2. Diet, activity and follow-up discussed with patient. Recommend nursing diet with increased calories and calcium. 3. Precautions given concern increased pain, bleeding, temperature, signs/symptoms of DVT/PE. 4. Medications per home medication was printed, discussed with and given to the patient. 5. Return to clinic-Dr. Gonzalez-[facility] in 2 weeks. Diagnosis: Term -delivered Condition: Good - Patient Data Vitals - Most Recent: Last Vital Signs Temp 37.1 C 05/18/20 03:46 Pulse 63 05/18/20 03:46 Resp 14 05/18/20 03:46 BP 114/63 05/18/20 03:46 Pulse Ox 99 05/18/20 03:46 Weight - Most Recent: 69.354 kg I&O - Last 24 hours: Intake & Output 05/17/20 05/17/20 05/18/20 14:59 22:59 06:59 Intake Total 0 0 Balance 0 0 Med Orders - Current: Current Medications Acetaminophen (Acetaminophen 325 Mg Tab) 650 mg PO Q4H PRN PRN Reason: mild pain or fever Last Admin: 05/16/20 09:56 Dose: 650 mg Documented by: Benzocaine/Menthol (Benzocaine/Menthol 20%-0.5% [place] 56 Gm Canister) 0 gm TOP ASDIRECTED PRN PRN Reason: Perineal Comfort Measure Last Admin: 05/16/20 10:05 Dose: 1 can Documented by: Docusate Sodium (Docusate Sodium 100 Mg Cap) 100 mg PO BID PRN PRN Reason: Constipation Last Admin: 05/16/20 14:21 Dose: 100 mg Documented by: Ibuprofen (Ibuprofen 600 Mg Tab) 600 mg PO Q4H PRN PRN Reason: Mild pain or fever Last Admin: 05/17/20 20:20 Dose: 600 mg Documented by: Bryson Castellanos (Bryson Castellanos Medicated Pads 40/Jar) 1 pad TOP ASDIRECTED PRN PRN Reason: Pain Last Admin: 05/16/20 10:04 Dose: 1 tub Documented by: Discontinued Medications Acetaminophen (Acetaminophen 325 Mg Tab) 650 mg PO Q4H PRN PRN Reason: Headache Last Admin: 05/15/20 16:03 Dose: 650 mg Documented by: Diphenhydramine HCl (Diphenhydramine 50 Mg/Ml Sdv) 25 mg IVPUSH Q6H PRN PRN Reason: pruritis Diphtheria/Tetanus/Acell Pertussis (Diphtheria,Pertussis(Acell),Tetanus Vaccine 0.5 Ml Syringe) 0.5 ml IM .ONCE ONE Stop: 05/15/20 11:53 Ephedrine Sulfate (Ephedrine 50 Mg/Ml Sdv) 5 mg IVPUSH ASDIRECTED PRN PRN Reason: Hypotension Fentanyl (Fentanyl 100 Mcg/2 Ml Sdv) 100 mcg EPIDUR Q3H PRN PRN Reason: Pain Last Admin: 05/15/20 21:05 Dose: 100 mcg Documented by: Fentanyl/Bupivacaine HCl (Bupivacaine/Fentanyl/Ns 100 Ml Bag) 100 ml EPIDUR ASDIRECTED PRN PRN Reason: Pain Last Admin: 05/15/20 21:05 Dose: 100 ml Documented by: Lactated Ringer's (Ringers, Lactated) 1,000 mls @ 100 mls/hr IV ASDIRECTED [facility] Last Admin: 05/16/20 01:22 Dose: 100 mls/hr Documented by: Ampicillin Sodium 2 gm/ Sodium (Chloride) 100 mls @ 200 mls/hr IV ONETIME ONE Stop: 05/15/20 10:59 Last Admin: 05/15/20 10:51 Dose: 200 mls/hr Documented by: Ampicillin Sodium 1 gm/ Sodium (Chloride) 100 mls @ 200 mls/hr IV Q4H [facility] Last Admin: 05/15/20 22:04 Dose: 200 mls/hr Documented by: Oxytocin/Lactated Ringer's (Pitocin In Lr 10 Units/1,000 Ml) 10 unit in 1,000 mls @ 12 mls/hr IV TITRATE TIFF; Protocol Last Admin: 05/15/20 20:45 Dose: 18 munits/min, 108 mls/hr Documented by: Oxytocin/Lactated Ringer's (Pitocin In Lr 20 Units/1,000 Ml) 20 unit in 1,000 mls @ 500 mls/hr IV .CONTINUOUS TIFF Oxytocin/Lactated Ringer's (Pitocin In Lr 20 Units/1,000 Ml) 20 unit in 1,000 mls @ 66 mls/hr IV TITRATE TIFF; Protocol Lidocaine HCl (Lidocaine 1% 50 Ml Mdv) Confirm Administered Dose 50 ml .ROUTE .[facility] ONE Stop: 05/16/20 03:28 Lidocaine/Epinephrine (Lidocaine 1.5% With Epinephrine 1:200,000 5 Ml Amp) 5 ml .ROUTE .[facility] ONE Stop: 05/16/20 08:01 Nalbuphine HCl (Nalbuphine 10 Mg/1 Ml Vial) 10 mg IVPUSH Q2H PRN PRN Reason: Pain Sodium Chloride (Sodium Chloride 0.9% 10 Ml Syringe) 10 ml FLUSH ASDIRECTED PRN PRN Reason: Keep Vein Open
[2020-05-18] MEDS: Ibuprofen 600 MG Tab PO PRN (06:33)
[2020-05-18] MEDS: Docusate Sodium 100 MG Cap PO PRN (06:34)
[2020-05-18] MEDS: buPROPion 150 MG Tab.ER PO SCH (10:07)
[2020-05-18] MEDS ORDERED: Diphtheria,Pertussis(Acell),Tetanus Vaccine 0.5 ML Syringe IM ONE (14:54)
== END 2020-05-18 15:50 | disposition home or self-care (01) | DRG 807 ==
LOC: JD.OBCHECK 09:15 → JD.OB 09:17 → UNDOADMOB 09:17 → EDSTATUS 09:40 → JD.OBCHECK 09:41 → JD.OB 09:42 → JD.OBCHECK 09:42 → JD.OB 10:05 → OBSVTOIN 05-16 03:16 → JD.OB 05-16 03:17
PROVIDERS: ADMIT Obstetrics & Gynecology; ATTEND Obstetrics & Gynecology
PROC: 10E0XZZ Delivery of Products of Conception, External Approach (ICD-10-PCS; principal; 2020-05-16)
PROC: 10907ZC Drainage of Amniotic Fluid, Therapeutic from Products of Conception, Via Natural or Artificial Opening (ICD-10-PCS; 2020-05-16)
PROC: 0HQ9XZZ Repair Perineum Skin, External Approach (ICD-10-PCS; 2020-05-16)
PROC: 3E0R3BZ Introduction of Anesthetic Agent into Spinal Canal, Percutaneous Approach (ICD-10-PCS; 2020-05-16)
PROC: 00HU33Z Insertion of Infusion Device into Spinal Canal, Percutaneous Approach (ICD-10-PCS; 2020-05-16)
PROC: 3E0234Z Introduction of Serum, Toxoid and Vaccine into Muscle, Percutaneous Approach (ICD-10-PCS; 2020-05-18)
DX: O99.52 Diseases of the respiratory system complicating childbirth (principal); Z37.0 Single live birth; J45.909 Unspecified asthma, uncomplicated; O99.62 Diseases of the digestive system complicating childbirth; K21.9 Gastro-esophageal reflux disease without esophagitis; O99.824 Streptococcus B carrier state complicating childbirth; O21.0 Mild hyperemesis gravidarum; Z3A.37 37 weeks gestation of pregnancy; O69.81X0 Labor and delivery complicated by cord around neck, without compression, not applicable or unspecified; O70.0 First degree perineal laceration during delivery; O99.344 Other mental disorders complicating childbirth; F41.9 Anxiety disorder, unspecified; F32.9 Major depressive disorder, single episode, unspecified; Z20.822 Contact with and (suspected) exposure to COVID-19; Z23 Encounter for immunization
CPT/HCPCS: 01967; 36415; 51702; 59025; 59409; 84112; 85025; 86592; 90471; 90715; A9270-GY; J0290; J2590; J3010; J7120; U0002

== ENCOUNTER 2020-06-24 07:43 | Emergency (ER) | payer MEDICAID ==
--- NOTE | 2020-06-24 08:29 | EDM.PDOC ---
ED HPI GENERAL MEDICAL PROBLEM - General Chief Complaint: Back Pain or Injury Stated Complaint: PAIN FROM UPPERDERAL Time Seen by Provider: 06/24/20 07:50 Source of Information: Reports: Patient History Limitations: Reports: No Limitations - History of Present Illness INITIAL COMMENTS - FREE TEXT/NARRATIVE: The patient presents with left low back and left leg pain and numbness. This started 3 days ago. She just delivered a baby on 06/16/20. She had an epidural and she is not sure if that had anything to do with it. She did have pain before delivery in the same spot. She was put on flexeril and that made her sleep for about 14 hours per day. The pain went away for a few days after giving but 3 days ago it started. She denies any injury. She does work at [employer] and she is on her feet all day. She has some numbness down her leg. She has no bowel or bladder problems. She does have some vaginal bleeding still with passing a clot the other day. She did see Dr Gonzalez a couple days ago. Onset: Gradual Duration: Day(s): (3) Location: Reports: Back, Lower Extremity, Left Quality: Reports: Sharp Severity: Moderate Improves with: Reports: Immobilization Worsens with: Reports: Movement Context: Denies: Trauma Associated Symptoms: Reports: No Other Symptoms back Pain Score (Numeric/FACES): 4 - Related Data Allergies Allergy/AdvReac Type Severity Reaction Status Date / Time No Known Allergies Allergy Verified 06/24/20 08:00 Home Meds: Home Meds Pnv No.95/Ferrous Fum/Folic AC [ Tablet] 1 each PO DAILY 03/24/20 [History] buPROPion HCL [Wellbutrin Xl] 150 mg PO DAILY 05/17/20 [History] Acetaminophen [Tylenol] 650 mg PO Q4H PRN tablet 05/18/20 [Rx] Ibuprofen [Motrin] 600 mg PO Q4H PRN tablet 05/18/20 [Rx] Naproxen [Naprosyn] 500 mg PO BID PRN #30 tablet 06/24/20 [Rx] Orphenadrine [Norflex] 100 mg PO BID PRN #20 tab 06/24/20 [Rx] Past Medical History - Past Health History Medical/Surgical History: Denies Medical/Surgical History Cardiovascular History: Reports: None Respiratory History: Reports: Asthma Gastrointestinal History: Reports: GERD INVESTIGATOR NARCOTICS History: Reports: Musculoskeletal History: Reports: None Psychiatric History: Reports: Anxiety Endocrine/Metabolic History: Reports: None Social & Family History - Family History Family Medical History: No Pertinent Family History - Tobacco Use Tobacco Use Status *Q: Never Tobacco User - Caffeine Use Caffeine Use: Reports: Soda, Tea - Recreational Drug Use Recreational Drug Use: No ED ROS GENERAL - Review of Systems Review Of Systems: See Below Constitutional: Reports: No Symptoms HEENT: Reports: No Symptoms Respiratory: Reports: No Symptoms Cardiovascular: Reports: No Symptoms Endocrine: Reports: No Symptoms GI/Abdominal: Reports: No Symptoms : Reports: No Symptoms Musculoskeletal: Reports: Back Pain Neurological: Reports: Numbness. Denies: Weakness ED EXAM,LOWER BACK PAIN/INJURY - Physical Exam Exam: See Below Exam Limited By: No Limitations General Appearance: Alert, No Apparent Distress Ears: Normal External Exam Nose: Normal Inspection Head: Atraumatic, Normocephalic Neck: Normal Inspection Respiratory/Chest: No Respiratory Distress, Lungs Clear, Normal Breath Sounds Cardiovascular: Regular Rate, Rhythm, No Edema, No Murmur GI/Abdominal: Soft, Non-Tender, No Organomegaly, No Mass Back Exam: Other (Mild pain upon palpation to the left low back. No edema or erythema noted.) Extremities: Normal Inspection, Non-Tender. No: Pedal Edema Neurological: Alert, Oriented x 3, Other (Equal strength in her legs. Decreased sensation to light touch to the left leg.) Course - Vital Signs Last Recorded V/S: Last Vital Signs Temp 97.7 F 06/24/20 07:54 Pulse 99 06/24/20 07:54 Resp 18 06/24/20 07:54 BP 137/66 06/24/20 07:54 Pulse Ox 97 06/24/20 07:54 - Re-Assessments/Exams Free Text/Narrative Re-Assessment/Exam: 06/24/20 08:29 I feel she has some low back pain with sciatica. It appears this was a problem before the epidural. The epidural did help for those few days and now the pain is back. I will try her on some norflex and naproxyn and have her follow up with one of your providers for possible MRI if she does not get better. Departure - Departure Time of Disposition: 08:30 Disposition: Home, Self-Care 01 Condition: Good Clinical Impression: Low back pain with sciatica Qualifiers: Chronicity: acute Back pain laterality: left Sciatica laterality: sciatica of left side Qualified Code(s): M54.42 - Lumbago with sciatica, left side - Discharge Information *PRESCRIPTION DRUG MONITORING PROGRAM REVIEWED*: Not Applicable *COPY OF PRESCRIPTION DRUG MONITORING REPORT IN PATIENT LINA: Not Applicable Prescriptions: Naproxen [Naprosyn] 500 mg PO BID PRN #30 tablet PRN Reason: Pain Orphenadrine [Norflex] 100 mg PO BID PRN #20 tab PRN Reason: Pain Referrals: Cedrick Gonzalez MD [Primary Care Provider] - Yumiko Petersen PA-C [Physician Fabrication Supervisor] - 1 Week Forms: ED Department Discharge, ED Return to Work/School Form Additional Instructions: Take the naprosyn 500mg 2 times per day. Try the norflex 100mg 2 times per day. If it is to strong, try half a pill. Follow up with Kendal Petersen in our clinic. Please return if you are worse. Sepsis Event Note (ED) - Evaluation Sepsis Screening Result: No Definite Risk - Focused Exam Vital Signs: Vital Signs Temp Pulse Resp BP Pulse Ox 06/24/20 07:54 97.7 F 99 18 137/66 97
== END 2020-06-24 08:49 | disposition home or self-care (01) ==
LOC: JD.ED 07:43
DX: M54.42 Lumbago with sciatica, left side (principal); Z79.899 Other long term (current) drug therapy
CPT/HCPCS: 99283

== ENCOUNTER 2020-09-29 15:36 | Emergency (ER) | payer MEDICAID ==
--- NOTE | 2020-09-29 16:15 | EDM.PDOC ---
ED HPI GENERAL MEDICAL PROBLEM - General Chief Complaint: Lower Extremity Injury/Pain Stated Complaint: LEFT LEG PAIN/BODY SWELLING Time Seen by Provider: 09/29/20 15:51 Source of Information: Reports: Patient, RN Notes Reviewed History Limitations: Reports: No Limitations - History of Present Illness INITIAL COMMENTS - FREE TEXT/NARRATIVE: Patient is a 25-year-old female who presents to the ER for the evaluation of her left sciatic pain, and weight gain/swelling. Patient notes she is 5 months , she is a and followed with Dr. Gonzalez for . Notes that prior to , she weighed about 124 pounds, and she has been watching her weight and she is now roughly 145 pounds, she states that she was only this happy in her third trimester. Notes that over the last 2 weeks, she has had increased weight gain and/or swelling, states that she cannot even get her rings on her fingers due to the swelling. Patient is also having left sciatic pain, that shoots down her left leg, with no numbness or tingling into the toes. States there is a pressure feeling, that seems to worsen with activity or walking. She has been on multiple different medications to include baclofen, Naprosyn, muscle relaxers, Lidoderm patches, and these all take the pain away for a little bit, but do not completely take care of the problem. States that she has had a lumbar x-ray, and was told that she had a slightly bulged disc, but no other major abnormalities. Patient has also been working with Dr. Gonzalez, for her irregular menses, and for the possibility of PCOS, she has recently been on Provera to help regulate her periods. Patient states she is also taken a few home tests, but some have come back inconclusive or have not resulted at all, so she is not sure if she can be at today's visit. Primary care provider is Kendal Petersen. Patient states that over the last few weeks while it has been extremely warm, she is try to limit her amount of time outside as well. Patient denies any other sick-like symptoms, fever/chills, cough/shortness of breath, nausea/vomiting/diarrhea. - Related Data Allergies Allergy/AdvReac Type Severity Reaction Status Date / Time No Known Allergies Allergy Verified 09/29/20 15:45 Home Meds: Home Meds Naproxen [Naprosyn] 500 mg PO BID PRN #30 tablet 06/24/20 [Rx] Orphenadrine [Norflex] 100 mg PO BID PRN #20 tab 06/24/20 [Rx] predniSONE 20 mg PO ASDIRECTED #15 tab 09/29/20 [Rx] Past Medical History HEENT History: Reports: Impaired Vision Respiratory History: Reports: Asthma Gastrointestinal History: Reports: GERD [employer] History: Reports: Dysfunctional Uterine Bleeding, : 1 Para: 1 Musculoskeletal History: Reports: Back Pain, Chronic Psychiatric History: Reports: Anxiety Social & Family History - Family History Family Medical History: No Pertinent Family History - Tobacco Use Tobacco Use Status *Q: Never Tobacco User Second Hand Smoke Exposure: No - Caffeine Use Caffeine Use: Reports: Coffee, Energy Drinks, Soda, Tea - Alcohol Use Days Per Week of Alcohol Use: 7 Number of Drinks Per Day: 1 Total Drinks Per Week: 7 Date of Last Drink: 09/27/20 - Recreational Drug Use Recreational Drug Use: No Review of Systems - Review of Systems Review Of Systems: Comprehensive ROS is negative, except as noted in HPI. ED EXAM, GENERAL - Physical Exam Exam: See Below Exam Limited By: No Limitations General Appearance: Alert, WD/WN, No Apparent Distress Respiratory/Chest: No Respiratory Distress, Lungs Clear, Normal Breath Sounds, No Accessory Muscle Use, Chest Non-Tender Cardiovascular: Normal Peripheral Pulses, Regular Rate, Rhythm, No Edema Peripheral Pulses: 2+: Radial (L), Radial (R), Dorsalis Pedis (L), Dorsalis Pedis (R) GI/Abdominal: Normal Bowel Sounds, Soft, No Distention, No Mass, Tender (very slight tenderness to RLQ) Extremities: Normal Inspection, Normal Capillary Refill Neurological: Alert, Oriented, Normal Cognition, No Motor/Sensory Deficits Psychiatric: Normal Affect, Normal Mood Skin Exam: Warm, Dry, Intact, Normal Color, No Rash Course - Vital Signs Last Recorded V/S: Last Vital Signs Temp 97 F 09/29/20 15:41 Pulse 72 09/29/20 15:41 Resp 14 09/29/20 15:41 BP 128/67 09/29/20 15:41 Pulse Ox 100 09/29/20 15:41 - Orders/Labs/Meds Labs: Laboratory Tests 09/29/20 09/29/20 Range/Units 16:06 16:17 WBC 10.13 H (3.98-10.04) K/mm3 RBC 4.63 (3.98-5.22) M/mm3 Hgb 14.1 (11.2-15.7) gm/dl Hct 41.8 (34.1-44.9) % MCV 90.3 (79.4-94.8) fl MCH 30.5 (25.6-32.2) pg MCHC 33.7 (32.2-35.5) g/dl RDW Std Deviation 42.5 (36.4-46.3) fL Plt Count 340 (182-369) K/mm3 MPV 9.1 L (9.4-12.3) fl Neut % (Auto) 47.5 (34.0-71.1) % Lymph % (Auto) 33.7 (19.3-51.7) % [place] % (Auto) 8.0 (4.7-12.5) % Eos % (Auto) 10.0 H (0.7-5.8) Baso % (Auto) 0.5 (0.1-1.2) % Neut # (Auto) 4.82 (1.56-6.13) K/mm3 Lymph # (Auto) 3.41 (1.18-3.74) K/mm3 [place] # (Auto) 0.81 H (0.24-0.36) K/mm3 Eos # (Auto) 1.01 H (0.04-0.36) K/mm3 Baso # (Auto) 0.05 (0.01-0.08) K/mm3 Manual Slide Review Normal smear Sodium 143 (136-145) mEq/L Potassium 4.0 (3.5-5.1) mEq/L Chloride 108 H (98-107) mEq/L Carbon Dioxide 28 (21-32) mEq/L Anion Gap 11.0 (5-15) BUN 11 (7-18) mg/dL Creatinine 0.8 (0.55-1.02) mg/dL Est Cr Clr Drug Dosing 3.92 mL/min Estimated GFR (MDRD) > 60 (>60) mL/min BUN/Creatinine Ratio 13.8 L (14-18) Glucose 79 (70-99) mg/dL Calcium 9.0 (8.5-10.1) mg/dL Total Bilirubin 0.3 (0.2-1.0) mg/dL AST 27 (15-37) U/L ALT 30 (14-59) U/L Alkaline Phosphatase 119 H (46-116) U/L Total Protein 7.9 (6.4-8.2) g/dl Albumin 4.2 (3.4-5.0) g/dl Globulin 3.7 gm/dL Albumin/Globulin Ratio 1.1 (1-2) TSH 3rd Generation 1.498 (0.358-3.74) uIU/mL HCG, Quant < 1.0 mIU/mL Meds: Medications Discontinued Medications Generic Name Dose Route Start Last Admin Trade Name Freq PRN Reason Stop Dose Admin Ketorolac Tromethamine 30 mg 09/29/20 17:19 Ketorolac 30 Mg/Ml Sdv IM 09/29/20 17:20 ONETIME ONE - Re-Assessments/Exams Free Text/Narrative Re-Assessment/Exam: 09/29/20 16:14 Patient presents to the ER for a few different complaints, for today, we will try to focus on the leg pain however she is not sure if she can be , so we will do a quantitative hCG to rule out , we will check basic labs to include CBC, CMP, and also a thyroid level for evaluation. If the hCG test is negative, we will go ahead and try Toradol for pain management. 09/29/20 17:27 Labs are essentially unremarkable. We will go ahead and get the Toradol ordered, and get her started on a course of prednisone for the sciatic pain. Departure - Departure Time of Disposition: 17:28 Disposition: Home, Self-Care 01 Condition: Good Clinical Impression: Sciatic leg pain - Discharge Information *PRESCRIPTION DRUG MONITORING PROGRAM REVIEWED*: No *COPY OF PRESCRIPTION DRUG MONITORING REPORT IN PATIENT LINA: No Prescriptions: predniSONE 20 mg PO ASDIRECTED #15 tab Instructions: Sciatica, [id number] Referrals: Yumiko Petersen PA-C [Primary Care Provider] - Forms: ED Department Discharge Additional Instructions: You were evaluated in the ER today for your low back and left leg pain, along with your body swelling/weight gain. Basic labs were obtained, and demonstrated no focal abnormalities, thyroid level was within normal limits, and you are not at today's visit. Please follow-up with your regular care provider, and/or [facility] for ongoing management of your general health. As for your sciatic pain, you have been started on prednisone, please take as directed to help decrease inflammation of the sciatic nerve, this should help relieve some of your pain. This medication was electronically sent to [facility] in the [facility]. Please note that you will have to go there tomorrow during the time that they are open, from 9 to 2 PM to obtain this medication and take as directed. If you have any leftover muscle relaxers, you may also try some of these to help further provide back pain relief over the next few days. Recommend that you try some chiropractic services, to see if this helps relieve some of your pain, along with spinal decompression to involve an inversion table or something of the sort. You may also try a back brace, that you may obtain at any local pharmacy or [facility], for further support of your back. Please return to the ER at any time if symptoms change or worsen. Sepsis Event Note (ED) - Evaluation Sepsis Screening Result: No Definite Risk - Focused Exam Vital Signs: Vital Signs Temp Pulse Resp BP Pulse Ox 09/29/20 15:41 97 F 72 14 128/67 100
[2020-09-29] MEDS ORDERED: Ketorolac 30 MG/ML SDV IM ONE (17:19)
== END 2020-09-29 17:45 | disposition home or self-care (01) ==
LOC: JD.ED 15:36
DX: M54.32 Sciatica, left side (principal); J45.909 Unspecified asthma, uncomplicated
CPT/HCPCS: 36415; 80053; 84443; 84702; 85025; 96372; 99283; J1885

== ENCOUNTER 2021-07-25 15:44 | Emergency (ER) | payer MEDICAID | END 2021-07-25 17:30 | disposition home or self-care (01) | LOC: JD.ED 15:44 | DX: J01.10 Acute frontal sinusitis, unspecified (principal) | CPT/HCPCS: 99283 ==

== ENCOUNTER 2022-11-30 19:38 | Emergency (ER) | payer MEDICAID | END 2022-11-30 20:37 | disposition left against medical advice (07) | LOC: JD.ED 19:38 | DX: Z53.21 Procedure and treatment not carried out due to patient leaving prior to being seen by health care provider (principal) ==

== ENCOUNTER 2022-12-01 12:28 | Emergency (ER) | payer MEDICAID | END 2022-12-01 13:39 | disposition home or self-care (01) | LOC: JD.ED 12:28 | DX: T85.848A Pain due to other internal prosthetic devices, implants and grafts, initial encounter (principal); M26.623 Arthralgia of bilateral temporomandibular joint; K04.7 Periapical abscess without sinus; Z86.16 Personal history of COVID-19; Z79.899 Other long term (current) drug therapy | CPT/HCPCS: 99283 ==

== ENCOUNTER 2023-01-14 22:58 | Emergency (ER) | payer MEDICAID ==
[2023-01-14 23:45] LABS: APPEARANCE,URINE SLT CLOUDY (Clear); BILIRUBIN,URINE NEGATIVE (Negative); COLOR,URINE YELLOW (Yellow); GLUCOSE,URINE NEGATIVE (Negative); KETONES,URINE NEGATIVE (Negative); LEUKOCYTE ESTERASE,URINE TRACE (Negative); NITRITE,URINE NEGATIVE (Negative); OCCULT BLOOD,URINE 2+ (Negative); PROTEIN,URINE 2+ (Negative)
[2023-01-15 00:01] LABS: BACTERIA,URINE FEW /hpf (FEW); EPITHELIAL CELLS,URINE 0-5 /hpf (0-5); MUCUS,URINE FEW /hpf (FEW)
[2023-01-15 00:23] LABS: BASOPHILS ABSOLUTE AUTO 0.1 K/mm3 (0.0-0.2); BASOPHILS PERCENT AUTO 0.4 % (0.0-1.0); EOSINOPHILS ABSOLUTE AUTO 0.7 K/mm3 (0.0-0.4); EOSINOPHILS PERCENT AUTO 4.7 % (0.0-6.0); HEMATOCRIT 43.1 % (37.0-47.0); HEMOGLOBIN 14.5 gm/dl (12.0-16.0); IMMATURE GRAN ABSOLUTE AUTO 0.05 K/mm3 (0.00-0.05); IMMATURE GRAN PERCENT AUTO 0.4 % (0.0-0.4); LYMPHOCYTES ABSOLUTE AUTO 3.9 K/mm3 (1.0-4.8); LYMPHOCYTES PERCENT AUTO 27.6 % (24.0-44.0); MEAN CORPUSCULAR HEMOGLOBIN 30.3 pg (28.0-32.0); MEAN CORPUSCULAR HGB CONC 33.6 g/dl (32.0-36.0); MEAN CORPUSCULAR VOLUME 90.2 fl (83.0-99.0); MONOCYTES ABSOLUTE AUTO 0.9 K/mm3 (0.0-0.8); MONOCYTES PERCENT AUTO 6.1 % (0.0-8.0); NEUTROPHILS ABSOLUTE AUTO 8.5 K/mm3 (1.8-7.7); NEUTROPHILS PERCENT AUTO 60.8 % (41.0-71.0); PLATELET COUNT,PLT 289 K/mm3 (150-400); RED BLOOD CELL COUNT 4.78 M/mm3 (4.10-5.30); WHITE BLOOD CELL COUNT,WBC 13.93 K/mm3 (3.9-11.3)
[2023-01-15] MEDS ORDERED: Amoxicillin/Clavulanate K 875-125 MG Tab PO ONE (01:01)
[2023-01-15] MEDS ORDERED: Phenazopyridine 95 MG Tab ONE (01:31)
[2023-01-15 06:27] LABS: BUN/CREATININE RATIO 6.3 (14-18); CREATININE 0.8 mg/dL (0.55-1.02); EST CRCL DRUG DOSING (CG) 77.22 mL/min
[2023-01-15 06:28] LABS: CALCIUM 9.3 mg/dL (8.5-10.1)
[2023-01-15 06:29] LABS: A/G RATIO 0.9 (1-2); ALBUMIN 3.9 g/dl (3.4-5.0); BILIRUBIN TOTAL 0.3 mg/dL (0.2-1.0); PROTEIN TOTAL,TP 8.1 g/dl (6.4-8.2)
== END 2023-01-15 01:35 | disposition home or self-care (01) ==
LOC: JD.ED 22:58
DX: N39.0 Urinary tract infection, site not specified (principal)
CPT/HCPCS: 36415; 80053; 81001; 81025; 85025; 99283; 99284

== ENCOUNTER 2023-04-17 20:42 | Emergency (ER) | payer MEDICAID ==
[2023-04-17 21:50] LABS: CORONAVIRUS COVID-19 NAA NEGATIVE (NEGATIVE); INFLUENZA A NAA NEGATIVE (NEGATIVE); RESPIRATORY SYNCYTIAL VIR NAA NEGATIVE (NEGATIVE)
[2023-04-17] MEDS: Acetaminophen 325 MG Tab PO ONE (21:53)
[2023-04-17] MEDS: Ibuprofen 600 MG Tab PO ONE (21:53)
== END 2023-04-17 22:10 | disposition home or self-care (01) ==
LOC: JD.ED 20:42
DX: J06.9 Acute upper respiratory infection, unspecified (principal); J44.9 Chronic obstructive pulmonary disease, unspecified; Z79.899 Other long term (current) drug therapy; Z86.16 Personal history of COVID-19
CPT/HCPCS: 0241U; 99283; A9270

== ENCOUNTER 2023-04-26 00:10 | Emergency (ER) | payer MEDICAID ==
[2023-04-26] MEDS ORDERED: LORazepam 0.5 MG Tab PO ONE (00:28)
== END 2023-04-26 02:41 | disposition left against medical advice (07) ==
LOC: JD.ED 00:10 → EEVIPCON 00:10 → JD.ED 02:41
DX: Z53.21 Procedure and treatment not carried out due to patient leaving prior to being seen by health care provider (principal)

== ENCOUNTER 2024-08-20 15:25 | Emergency (ER) | payer BC, MEDICAID ==
[2024-08-20] MEDS: Acetaminophen 325 MG Tab PO ONE (16:35)
[2024-08-20] MEDS: Loratadine 10 MG Tab PO ONE (16:36)
== END 2024-08-20 18:14 | disposition home or self-care (01) ==
LOC: JD.ED 15:25
DX: J06.9 Acute upper respiratory infection, unspecified (principal); Z88.8 Allergy status to other drugs, medicaments and biological substances; Z79.899 Other long term (current) drug therapy; Z86.16 Personal history of COVID-19
CPT/HCPCS: 87651; 99283; A9270